=== PATIENT | male | born 1985 | race Caucasian/White ===

== ENCOUNTER 2017-05-13 08:54 | Emergency (ER) | payer BC ==
[2017-05-13 08:59] VITALS: TEMP 97.2
--- NOTE | 2017-05-13 09:06 | ED ---
General Adult HPI - General Chief complaint: Upper Respiratory Infection Stated complaint: Dx URI, STILL NOT FEELING WELL Time Seen by Provider: 05/13/17 09:01 Source: patient, RN notes reviewed Mode of arrival: ambulatory Limitations: no limitations - History of Present Illness Initial comments: Patient 32-year-old male who presents emergency room today with a chief complaint of cough congestion over the last week and a half. He does admit that he was placed on Augmentin by the family doctor. He does admit that he finished this antibiotic for days ago. He states does not feel that he's gotten any better. Still having cough congestion upon sputum production. States colors been clear in patient denies any other complaints associated symptoms. Patient denies any recent fever, chills, shortness of breath, chest pain, back pain, abdominal pain, nausea or vomiting, numbness or tingling, dysuria or hematuria, constipation or diarrhea, headaches or visual changes, or any other complaints. - Related Data Previous Rx's Medication Instructions Recorded guaiFENesin 400 mg PO Q4-6H #30 tablet 05/13/17 Allergies Allergy/AdvReac Type Severity Reaction Status Date / Time Iodinated Contrast- Oral and Allergy Anaphylaxis Verified 05/13/17 08:59 IV Dye shellfish derived [Shellfish] Allergy Anaphylaxis Verified 05/13/17 08:59 Review of Systems ROS Statement: Those systems with pertinent positive or pertinent negative responses have been documented in the HPI. ROS Other: All systems not noted in ROS Statement are negative. Past Medical History Past Medical History: No Reported History History of Any Multi-Drug Resistant Organisms: MRSA Date of last positivie culture/infection: 2010 MDRO Source:: leg Past Surgical History: Orthopedic Surgery Past Psychological History: No Psychological Hx Reported Smoking Status: Current every day smoker Past Alcohol Use History: Occasional Past Drug Use History: None Reported General Exam - General Exam Comments Initial Comments: General: The patient is awake and alert, in no distress, and does not appear acutely ill. Eye: Pupils are equal, round and reactive to light, extra-ocular movements are intact. No nystagmus. There is normal conjunctiva bilaterally. No signs of icterus. Ears, nose, mouth and throat: There are moist mucous membranes and no oral lesions. Neck: The neck is supple, there is no tenderness or JVD. Cardiovascular: There is a regular rate and rhythm. No murmur, rub or gallop is appreciated. Respiratory: Lungs are clear to auscultation, respirations are non-labored, breath sounds are equal. No wheezes, stridor, rales, or rhonchi. Musculoskeletal: Normal ROM, no tenderness. Strength 5/5. Sensation intact. Pulses equal bilaterally 2+. Neurological: A&O x 3. CN II-XII intact, There are no obvious motor or sensory deficits. Coordination appears grossly intact. Speech is normal. Skin: Skin is warm and dry and no rashes or lesions are noted. Psychiatric: Cooperative, appropriate mood & affect, normal judgment. Limitations: no limitations Course Vital Signs 05/13/17 08:56 Temperature 97.2 F L Pulse Rate 61 Respiratory 16 Rate Blood Pressure 133/91 O2 Sat by Pulse 98 Oximetry Medical Decision Making - Medical Decision Making Patient's x-ray reviewed negative for any acute abnormality. No sign of pneumonia. Results were discussed with the patient. Was advised that most likely a viral illness at this time. Advised patient to continue with ALLERGY medication. Will be given a prescription for guaifenesin. 8. To follow-up the family doctor symptoms are improving over the next 3-5 days. Advised return for any increase or worsening symptoms Disposition Clinical Impression: Upper respiratory infection Disposition: HOME SELF-CARE Condition: Good Instructions: Upper Respiratory Infection (ED) Additional Instructions: Please use medication as discussed. Please follow-up with family doctor in the next 3-5 days of symptoms have not improved. Please return to emergency room if the symptoms increase or worsen or for any other concerns. Prescriptions: guaiFENesin 400 mg PO Q4-6H #30 tablet Referrals: Samantha España MD [Primary Care Provider] - 1-2 days Time of Disposition: 09:34
--- NOTE | 2017-05-13 09:19 | XR ---
EXAMINATION TYPE: XR chest 2V DATE OF EXAM: 05/13/2017 COMPARISON: Chest x-ray March 21, 2013. HISTORY: Cough and congestion for one week. TECHNIQUE: Frontal and lateral views of the chest are obtained. FINDINGS: There is no focal air space opacity, pleural effusion, or pneumothorax seen. The cardiac silhouette size is within normal limits. The osseous structures are intact. IMPRESSION: No suspicious acute pulmonary process.
[2017-05-13 10:15] VITALS: BP 156/101; PULSE 65; RESP 17
== END 2017-05-13 10:20 | disposition home or self-care (01) ==
LOC: EC 08:54
DX: J06.9 Acute upper respiratory infection, unspecified (principal); F17.200 Nicotine dependence, unspecified, uncomplicated; Z91.041 Radiographic dye allergy status; Z91.013 Allergy to seafood
CPT/HCPCS: 71020; 99283

== ENCOUNTER 2019-11-02 09:09 | Emergency (ER) | payer BC, OTHER ==
[2019-11-02] MEDS ORDERED: NITROGLYCERIN SL TABS 0.4 MG TAB SUBLINGUAL STA (09:39)
[2019-11-02] MEDS ORDERED: ASPIRIN 81 MG PO STA (09:39)
[2019-11-02] MEDS ORDERED: SODIUM CHLORIDE 0.9% 1,000 ML IV STA (09:39)
--- NOTE | 2019-11-02 09:45 | ED ---
Chest Pain HPI - General Chief Complaint: Chest Pain Stated Complaint: Chest pain Time Seen by Provider: 11/02/19 09:20 Source: patient, RN notes reviewed Mode of arrival: ambulatory Limitations: no limitations - History of Present Illness Initial Comments: This is a 34-year-old male with a benign past medical history was a smoker and does work as a therapy manager who states she's been having intermittent episodes of chest pain he points to mid left sternal area since the beginning of this month. He states he been under a lot of stress since that time he had a new child born the and his dad is on hospice now for cancer since the of this month. He states he does get some relief from the pain when he burps it's 3- 12/19 severity he states is sharp and irritating he points to the midsternal area on the left he is not able reproduce it does not get worse or better with any type of movement deep breathing or positional change. He is not recall any heavy lifting no trauma he was noted have elevated blood pressure when he was evaluated up on the floor was father is currently. He states he normally has normal blood pressure. No other modifying factors he does state he was cutting down smoking many started smoking more because of the stress MD Complaint: chest pain - Related Data Home Medications Medication Instructions Recorded Confirmed Acetaminophen Tab [Tylenol Tab] 1,000 mg PO Q6HR PRN 08/15/17 08/15/17 Previous Rx's Medication Instructions Recorded Dicyclomine [Bentyl] 10 mg PO TID #10 capsule 08/15/17 Ondansetron Odt [Zofran ODT] 4 mg PO Q8HR PRN #20 tab 08/15/17 ALPRAZolam [Xanax] 0.5 mg PO BID PRN #10 tablet 11/02/19 Ibuprofen 800 mg PO Q6HR PRN #20 tablet 11/02/19 Allergies Allergy/AdvReac Type Severity Reaction Status Date / Time Iodinated Contrast Media Allergy Anaphylaxis Verified 08/15/17 13:14 [Iodinated Contrast- Oral and IV Dye] shellfish derived [Shellfish] Allergy Anaphylaxis Verified 08/15/17 13:14 Review of Systems ROS Statement: Those systems with pertinent positive or pertinent negative responses have been documented in the HPI. ROS Other: All systems not noted in ROS Statement are negative. EKG Findings - EKG Results: EKG: interpreted by LARS ELLER, sinus rhythm, normal axis, normal QRS, normal ST/T, no acute changes ([place] [address] QRS duration 110 QT since QTC 398/[address]-T wave changes) Past Medical History Past Medical History: Asthma History of Any Multi-Drug Resistant Organisms: MRSA Date of last positivie culture/infection: 2010 MDRO Source:: leg Past Surgical History: Orthopedic Surgery Past Psychological History: No Psychological Hx Reported Smoking Status: Current every day smoker Past Alcohol Use History: Occasional Past Drug Use History: Marijuana General Exam - General Exam Comments Initial Comments: This is a well-developed well-nourished awake alert oriented 3 male Limitations: no limitations General appearance: alert, in no apparent distress Head exam: Present: atraumatic, normocephalic, normal inspection Eye exam: Present: normal appearance, PERRL, EOMI. Absent: scleral icterus, conjunctival injection, periorbital swelling ENT exam: Present: normal exam, mucous membranes moist Neck exam: Present: normal inspection, full ROM, other (No stridor JVD or bruits). Absent: tenderness, meningismus, lymphadenopathy Respiratory exam: Present: normal lung sounds bilaterally. Absent: respiratory distress, wheezes, rales, rhonchi, stridor Cardiovascular Exam: Present: regular rate, normal rhythm, normal heart sounds. Absent: systolic murmur, diastolic murmur, rubs, gallop, clicks GI/Abdominal exam: Present: soft, normal bowel sounds. Absent: distended, tenderness, guarding, rebound, rigid Extremities exam: Present: normal inspection, full ROM, normal capillary refill. Absent: tenderness, pedal edema, joint swelling, calf tenderness Back exam: Present: normal inspection Neurological exam: Present: alert, oriented X3, CN II-XII intact Psychiatric exam: Present: normal affect, normal mood Skin exam: Present: warm, dry, intact, normal color. Absent: rash Course Vital Signs 11/02/19 11/02/19 11/02/19 09:12 10:15 11:22 Temperature 98.3 F Pulse Rate 78 66 51 L Respiratory 18 16 16 Rate Blood Pressure 166/127 148/108 145/92 O2 Sat by Pulse 98 97 99 Oximetry Chest Pain MDM - MDM I did reevaluate patient several occasions he states he is only feeling better less stressed out. He points to one spot at the lower anterior left costal chondral margin. We did a long discussion regarding the etiology is likely stress-induced costochondritic origin. He did caution the patient was smoking. He will be discharged he is encouraged to follow-up with his doctor for outpatient stress test. Disposition Clinical Impression: Chest wall syndrome, Anxiety, Costochondritis, Smoking Disposition: HOME SELF-CARE Condition: Good Instructions (If sedation given, give patient instructions): Costochondritis (ED), Anxiety (ED), Anxiolysis in Adults (ED), How to Stop Smoking (ED) Additional Instructions: Follow-up with her doctor as per discussion for outpatient stress test, stop smoking if possible Prescriptions: Ibuprofen 800 mg PO Q6HR PRN #20 tablet PRN Reason: Pain ALPRAZolam [Xanax] 0.5 mg PO BID PRN #10 tablet PRN Reason: Anxiety Is patient prescribed a controlled substance at d/c from ED?: No When asked, does pt state using other controlled substances?: No If opioid is for acute pain is fill amount 7 days or less?: Yes Referrals: Samantha España MD [Primary Care Provider] - 1-2 days
[2019-11-02 09:59] LABS: Basophils # (A) 0.1 k/uL (0-0.2); Basophils % (A) 1 %; Eosinophils # (A) 0.4 k/uL (0-0.7); Eosinophils % (A) 6 %; HCT 50.6 % (39.0-53.0); Lymphocytes # (A) 1.8 k/uL (1.0-4.8); Lymphocytes % (A) 25 %; MCH 31.2 pg (25.0-35.0); MCHC 33.6 g/dL (31.0-37.0); MCV 92.9 fL (80.0-100.0); Mean Platelet Volume 7.6; Monocytes # (A) 0.4 k/uL (0-1.0); Monocytes % (A) 6 %; Neutrophils # (A) 4.3 k/uL (1.3-7.7); Neutrophils % (A) 61 %; Platelet Count 284 k/uL (150-450); RBC 5.44 m/uL (4.30-5.90); RDW 12.3 % (11.5-15.5); WBC 7.1 k/uL (3.8-10.6)
[2019-11-02 10:07] LABS: ALT 26 U/L (4-49); AST 25 U/L (17-59); African American GFR (CKD) >90 (>60 ml/min/1.73 sqM); Albumin 4.8 g/dL (3.5-5.0); Alkaline Phosphatase 88 U/L (38-126); Anion Gap 9 mmol/L; Blood Urea Nitrogen 11 mg/dL (9-20); Calcium 9.8 mg/dL (8.4-10.2); Carbon Dioxide 24 mmol/L (22-30); Chloride 107 mmol/L (98-107); Creatine Kinase 82 U/L (55-170); Glucose 104 mg/dL (74-99); Magnesium 2.3 mg/dL (1.6-2.3); Non-African American GFR(CKD) >90 (>60 ml/min/1.73 sqM); Potassium 4.3 mmol/L (3.5-5.1); Sodium 140 mmol/L (137-145); Total Bilirubin 0.6 mg/dL (0.2-1.3)
[2019-11-02 10:18] LABS: D-Dimer <0.17 mg/L FEU (<0.60); INR 0.9 (<1.2); Partial Thromboplastin Time 23.8 sec (22.0-30.0); Prothrombin Time 9.7 sec (9.0-12.0)
--- NOTE | 2019-11-02 10:53 | XR ---
EXAMINATION TYPE: XR chest 2V DATE OF EXAM: 11/02/2019 HISTORY: Chest Pain. REFERENCE: Previous study dated 05/31/2017. FINDINGS: The lungs remain clear. Pleural space are clear. The heart is not enlarged. IMPRESSION: NO ACTIVE INTRATHORACIC DISEASE.
[2019-11-02] MEDS ORDERED: KETOROLAC 30 MG/ML 1 ML VIAL IVP STA (10:59)
[2019-11-02 12:11] VITALS: BP 150/94; PULSE 62; RESP 18; TEMP 98
== END 2019-11-02 12:11 | disposition home or self-care (01) ==
LOC: EC 09:09
DX: M94.0 Chondrocostal junction syndrome [Tietze] (principal); F41.9 Anxiety disorder, unspecified; Z63.79 Other stressful life events affecting family and household; F17.200 Nicotine dependence, unspecified, uncomplicated; Z91.013 Allergy to seafood; Z91.041 Radiographic dye allergy status; Z86.14 Personal history of Methicillin resistant Staphylococcus aureus infection
CPT/HCPCS: 36415; 93005; 85379; 83880; 80053; 82550; 83690; 83735; 84484; 85025; 85610; 85730; 71046; 99285; 96374; 96361 ×2; J1885

== ENCOUNTER 2019-11-21 19:02 | Observation (INO) | payer BC, OTHER ==
[2019-11-21 19:54] LABS: Basophils # (A) 0.1 k/uL (0-0.2); Basophils % (A) 1 %; Eosinophils # (A) 0.4 k/uL (0-0.7); Eosinophils % (A) 4 %; HCT 49.5 % (39.0-53.0); HGB 16.5 gm/dL (13.0-17.5); Lymphocytes # (A) 2.2 k/uL (1.0-4.8); Lymphocytes % (A) 25 %; MCH 30.8 pg (25.0-35.0); MCHC 33.4 g/dL (31.0-37.0); MCV 92.1 fL (80.0-100.0); Mean Platelet Volume 7.6; Monocytes # (A) 0.6 k/uL (0-1.0); Monocytes % (A) 7 %; Neutrophils # (A) 5.6 k/uL (1.3-7.7); Neutrophils % (A) 62 %; Platelet Count 272 k/uL (150-450); RBC 5.37 m/uL (4.30-5.90); RDW 12.2 % (11.5-15.5); WBC 8.9 k/uL (3.8-10.6)
[2019-11-21 20:00] LABS: Appearance,Urine Clear (Clear); Bilirubin,Urine Negative (Negative); Blood,Urine Negative (Negative); Color,Urine Colorless; Glucose,Urine (UA) Negative (Negative); Ketones,Urine Negative (Negative); Leukocyte Esterase,Urine Negative (Negative); Nitrite,Urine Negative (Negative); PH, Urine 5.5 (5.0-8.0); Protein,Urine Negative (Negative); Specific Gravity,Urine 1.001 (1.001-1.035); Urobilinogen,Urine <2.0 mg/dL (<2.0)
[2019-11-21 20:03] LABS: Partial Thromboplastin Time 23.7 sec (22.0-30.0)
[2019-11-21 20:09] LABS: ALT 36 U/L (4-49); AST 28 U/L (17-59); African American GFR (CKD) >90 (>60 ml/min/1.73 sqM); Albumin 4.7 g/dL (3.5-5.0); Alkaline Phosphatase 66 U/L (38-126); Anion Gap 13 mmol/L; Blood Urea Nitrogen 8 mg/dL (9-20); Calcium 9.3 mg/dL (8.4-10.2); Carbon Dioxide 21 mmol/L (22-30); Chloride 106 mmol/L (98-107); Glucose 102 mg/dL (74-99); Magnesium 2.4 mg/dL (1.6-2.3); Non-African American GFR(CKD) >90 (>60 ml/min/1.73 sqM); Potassium 4.2 mmol/L (3.5-5.1); Sodium 140 mmol/L (137-145); Total Bilirubin 0.5 mg/dL (0.2-1.3); Total Protein 7.7 g/dL (6.3-8.2)
--- NOTE | 2019-11-21 20:21 | XR ---
EXAMINATION: XR chest 2V DATE AND TIME: 11/21/2019 7:52 PM CLINICAL INDICATION: PHH; Chest Pain TECHNIQUE: Departmental protocol COMPARISON: 11/02/2019 FINDINGS: The lungs are clear. The pleural spaces are negative. The cardiac silhouette is not enlarged. The remainder of the mediastinal silhouette is unremarkable. The skeletal structures and soft tissues are negative for acute findings. IMPRESSION: NO ACUTE PROCESS.
--- NOTE | 2019-11-21 21:07 | ED ---
General Adult HPI - General Chief complaint: Chest Pain Stated complaint: Chest pain Time Seen by Provider: 11/21/19 19:22 Source: patient, EMS Mode of arrival: EMS Limitations: no limitations - History of Present Illness Initial comments: 34-year-old male patient past medical history significant for hypertension and chronic alcohol abuse presents to the emergency department today for evaluation of substernal chest pain. Patient states the pain is radiating through to his back. Patient states he was having painful breathing with this. Denies any cough or congestion. Denies nausea, vomiting, or sweats. Patient states he has been under a lot of stress lately. States his father is currently in hospice at this hospital. Patient states he did have a similar episode a few weeks ago. He was evaluated here and discharged home. States he is unable to follow up with cardiology. Patient states that pain started at rest. States it was like a tight squeezing pain to the center of his chest. Patient states whenever he goes to doctors blood pressure was elevated but he has never been started on medication. He does admit to drinking 3-4 beers per day. Denies any change to his pain with eating or drinking. Patient denies any recent rash, fever, chills, abdominal pain, diarrhea, constipation, back pain, numbness, tingling, dizziness, weakness, hematuria, dysuria, urinary urgency, urinary frequency, headache, visual changes, or any other complaints. - Related Data Home Medications Medication Instructions Recorded Confirmed Acetaminophen Tab [Tylenol Tab] 1,000 mg PO Q6HR PRN 08/15/17 08/15/17 Previous Rx's Medication Instructions Recorded Dicyclomine [Bentyl] 10 mg PO TID #10 capsule 08/15/17 Ondansetron Odt [Zofran ODT] 4 mg PO Q8HR PRN #20 tab 08/15/17 ALPRAZolam [Xanax] 0.5 mg PO BID PRN #10 tablet 11/02/19 Ibuprofen 800 mg PO Q6HR PRN #20 tablet 11/02/19 Allergies Allergy/AdvReac Type Severity Reaction Status Date / Time Iodinated Contrast Media Allergy Anaphylaxis Verified 11/21/19 19:18 [Iodinated Contrast- Oral and IV Dye] shellfish derived [Shellfish] Allergy Anaphylaxis Verified 11/21/19 19:18 Review of Systems ROS Statement: Those systems with pertinent positive or pertinent negative responses have been documented in the HPI. ROS Other: All systems not noted in ROS Statement are negative. Past Medical History Past Medical History: Asthma History of Any Multi-Drug Resistant Organisms: MRSA Date of last positivie culture/infection: 2010 MDRO Source:: leg Past Surgical History: Orthopedic Surgery Past Psychological History: No Psychological Hx Reported Smoking Status: Current every day smoker Past Alcohol Use History: Occasional Past Drug Use History: Marijuana General Exam Limitations: no limitations General appearance: alert, in no apparent distress, other (Physical well- developed, well-nourished adult male patient in no acute distress.) Eye exam: Present: normal appearance, PERRL, EOMI. Absent: scleral icterus, conjunctival injection, periorbital swelling ENT exam: Present: normal exam, normal oropharynx, mucous membranes moist Respiratory exam: Present: normal lung sounds bilaterally. Absent: respiratory distress, wheezes, rales, rhonchi, stridor Cardiovascular Exam: Present: regular rate, normal rhythm, normal heart sounds. Absent: systolic murmur, diastolic murmur, rubs, gallop, clicks GI/Abdominal exam: Present: soft, normal bowel sounds. Absent: distended, tenderness, guarding, rebound, rigid Neurological exam: Present: alert, oriented X3, CN II-XII intact Psychiatric exam: Present: normal affect, normal mood Skin exam: Present: warm, dry, intact, normal color. Absent: rash Course Vital Signs 11/21/19 11/21/19 11/21/19 19:11 19:15 19:30 Temperature 98.1 F Pulse Rate 77 76 Respiratory 20 16 Rate Blood Pressure 130/73 130/73 O2 Sat by Pulse 95 97 Oximetry 11/21/19 11/21/19 11/21/19 19:38 20:00 20:05 Temperature Pulse Rate 72 63 69 Respiratory 20 14 16 Rate Blood Pressure 117/62 117/62 119/93 O2 Sat by Pulse 97 99 97 Oximetry 11/21/19 20:30 Temperature Pulse Rate 72 Respiratory 16 Rate Blood Pressure 119/53 O2 Sat by Pulse 97 Oximetry EKG Findings - EKG Comments: EKG Findings:: EKG obtained at 1925 shows normal sinus rhythm with a ventricular rate is 77, NH interval 176, QRS duration 96, QT 370, QTC 418. Medical Decision Making - Medical Decision Making 34 year old male patient presents to the emergency department today for evaluation of chest pain painful breathing. Labs reviewed and are unremarkable. Chest x-ray shows no acute cardio pulmonary process. EKG shows no ST elevation or depression. This is the patient's second similar episode in the last few weeks. Patient potentially has untreated hypertension, does drink beer on a daily basis, and has family history of coronary artery disease. Patient will be admitted to the hospital for further evaluation by cardiology. Patient is agreeable this plan. - Lab Data Result diagrams: 11/21/19 19:32 11/21/19 19:32 Lab Results 11/21/19 11/21/19 11/21/19 Range/Units 19:32 19:32 19:32 WBC 8.9 (3.8-10.6) k/uL RBC 5.37 (4.30-5.90) m/uL Hgb 16.5 (13.0-17.5) gm/dL Hct 49.5 (39.0-53.0) % MCV 92.1 (80.0-100.0) fL MCH 30.8 (25.0-35.0) pg MCHC 33.4 (31.0-37.0) g/dL RDW 12.2 (11.5-15.5) % Plt Count 272 (150-450) k/uL Neutrophils % 62 % Lymphocytes % 25 % Monocytes % 7 % Eosinophils % 4 % Basophils % 1 % Neutrophils # 5.6 (1.3-7.7) k/uL Lymphocytes # 2.2 (1.0-4.8) k/uL Monocytes # 0.6 (0-1.0) k/uL Eosinophils # 0.4 (0-0.7) k/uL Basophils # 0.1 (0-0.2) k/uL PT 10.0 (9.0-12.0) sec INR 1.0 (<1.2) APTT 23.7 (22.0-30.0) sec Sodium (137-145) mmol/L Potassium (3.5-5.1) mmol/L Chloride (98-107) mmol/L Carbon Dioxide (22-30) mmol/L Anion Gap mmol/L BUN (9-20) mg/dL Creatinine (0.66-1.25) mg/dL Est GFR (CKD-EPI)AfAm (>60 ml/min/1.73 sqM) Est GFR (CKD-EPI)NonAf (>60 ml/min/1.73 sqM) Glucose (74-99) mg/dL Calcium (8.4-10.2) mg/dL Magnesium (1.6-2.3) mg/dL Total Bilirubin (0.2-1.3) mg/dL AST (17-59) U/L ALT (4-49) U/L Alkaline Phosphatase (38-126) U/L Troponin I (0.000-0.034) ng/mL Total Protein (6.3-8.2) g/dL Albumin (3.5-5.0) g/dL Urine Color Colorless Urine Appearance Clear (Clear) Urine pH 5.5 (5.0-8.0) Ur Specific Collins 1.001 (1.001-1.035) Urine Protein Negative (Negative) Urine Glucose (UA) Negative (Negative) Urine Ketones Negative (Negative) Urine Blood Negative (Negative) Urine Nitrite Negative (Negative) Urine Bilirubin Negative (Negative) Urine Urobilinogen <2.0 (<2.0) mg/dL Ur Leukocyte Esterase Negative (Negative) 11/21/19 11/21/19 Range/Units 19:32 19:32 WBC (3.8-10.6) k/uL RBC (4.30-5.90) m/uL Hgb (13.0-17.5) gm/dL Hct (39.0-53.0) % MCV (80.0-100.0) fL MCH (25.0-35.0) pg MCHC (31.0-37.0) g/dL RDW (11.5-15.5) % Plt Count (150-450) k/uL Neutrophils % % Lymphocytes % % Monocytes % % Eosinophils % % Basophils % % Neutrophils # (1.3-7.7) k/uL Lymphocytes # (1.0-4.8) k/uL Monocytes # (0-1.0) k/uL Eosinophils # (0-0.7) k/uL Basophils # (0-0.2) k/uL PT (9.0-12.0) sec INR (<1.2) APTT (22.0-30.0) sec Sodium 140 (137-145) mmol/L Potassium 4.2 (3.5-5.1) mmol/L Chloride 106 (98-107) mmol/L Carbon Dioxide 21 L (22-30) mmol/L Anion Gap 13 mmol/L BUN 8 L (9-20) mg/dL Creatinine 0.87 (0.66-1.25) mg/dL Est GFR (CKD-EPI)AfAm >90 (>60 ml/min/1.73 sqM) Est GFR (CKD-EPI)NonAf >90 (>60 ml/min/1.73 sqM) Glucose 102 H (74-99) mg/dL Calcium 9.3 (8.4-10.2) mg/dL Magnesium 2.4 H (1.6-2.3) mg/dL Total Bilirubin 0.5 (0.2-1.3) mg/dL AST 28 (17-59) U/L ALT 36 (4-49) U/L Alkaline Phosphatase 66 (38-126) U/L Troponin I <0.012 (0.000-0.034) ng/mL Total Protein 7.7 (6.3-8.2) g/dL Albumin 4.7 (3.5-5.0) g/dL Urine Color Urine Appearance (Clear) Urine pH (5.0-8.0) Ur Specific Collins (1.001-1.035) Urine Protein (Negative) Urine Glucose (UA) (Negative) Urine Ketones (Negative) Urine Blood (Negative) Urine Nitrite (Negative) Urine Bilirubin (Negative) Urine Urobilinogen (<2.0) mg/dL Ur Leukocyte Esterase (Negative) - Radiology Data Radiology results: report reviewed, image reviewed Two-view x-ray of the chest is obtained. Report reviewed in its entirety. Impression by Dr. Niurka Johnston shows no acute process. Disposition Clinical Impression: Chest pain Disposition: ADMITTED IP TO THIS HOSP Condition: Serious Referrals: Samantha España MD [Primary Care Provider] - 1-2 days Decision to Admit Reason: Admit from [facility] Decision Date: 11/21/19 Decision Time: 21:07
[2019-11-21] MEDS ORDERED: ONDANSETRON 4 MG/2 ML VIAL IVP PRN (21:11)
[2019-11-21] MEDS ORDERED: NALOXONE 0.4 MG/ML 1 ML VIAL IV PRN (21:11)
[2019-11-21] MEDS ORDERED: MORPHINE SULFATE 4 MG/ML SYRINGE IV PRN (21:11)
[2019-11-22] MEDS ORDERED: ALPRAZolam 0.5 MG TAB PO PRN (08:28)
[2019-11-22] MEDS ORDERED: ACETAMINOPHEN TAB 500 MG TAB PO PRN (08:28)
[2019-11-22] MEDS ORDERED: ASPIRIN 325 MG TAB PO SCH (09:00)
[2019-11-22 09:24] LABS: Basophils # (A) 0.1 k/uL (0-0.2); Basophils % (A) 1 %; Eosinophils # (A) 0.6 k/uL (0-0.7); Eosinophils % (A) 7 %; HCT 49.5 % (39.0-53.0); Lymphocytes # (A) 2.4 k/uL (1.0-4.8); Lymphocytes % (A) 28 %; MCH 30.1 pg (25.0-35.0); MCHC 32.4 g/dL (31.0-37.0); MCV 93.1 fL (80.0-100.0); Mean Platelet Volume 7.5; Monocytes # (A) 0.6 k/uL (0-1.0); Monocytes % (A) 6 %; Neutrophils # (A) 4.9 k/uL (1.3-7.7); Neutrophils % (A) 57 %; Platelet Count 262 k/uL (150-450); RBC 5.32 m/uL (4.30-5.90); RDW 12.4 % (11.5-15.5); WBC 8.5 k/uL (3.8-10.6)
[2019-11-22 09:43] LABS: ALT 34 U/L (4-49); AST 27 U/L (17-59); African American GFR (CKD) >90 (>60 ml/min/1.73 sqM); Albumin 4.3 g/dL (3.5-5.0); Alkaline Phosphatase 72 U/L (38-126); Anion Gap 7 mmol/L; Blood Urea Nitrogen 10 mg/dL (9-20); Calcium 9.3 mg/dL (8.4-10.2); Carbon Dioxide 24 mmol/L (22-30); Chloride 108 mmol/L (98-107); Glucose 84 mg/dL (74-99); Non-African American GFR(CKD) >90 (>60 ml/min/1.73 sqM); Potassium 4.5 mmol/L (3.5-5.1); Sodium 139 mmol/L (137-145); Total Bilirubin 0.8 mg/dL (0.2-1.3); Total Protein 7.3 g/dL (6.3-8.2)
--- NOTE | 2019-11-22 10:50 | P.HPIM ---
History of Present Illness H&P Date: 11/22/19 Chief Complaint: chest pain This is a 34-year-old male patient who presented to the ER with complaints of chest pain. Patient reports that came on suddenly when he was at rest and was described as sharp that radiated to his back. Patient does report he's been under a lot of stress lately with an ill father. Patient states he had similar episode a few weeks ago when she presented to the ER but was discharged and advised follow up with cardiology services. Patient reports he has been unable to follow up with cardiology services. Chest x-ray was completed in ER showing no acute process. EKG completed showing normal sinus rhythm low voltage QRS. D-dimer 0.21. Troponins negative. At that time cardiology services have been consulted. 2-D echo has been ordered. Patient denies any chest pain or shortness of breath. Patient denies nausea vomiting or diarrhea. Patient denies any urinary burning or frequency. Review of Systems Please refer to HPI otherwise unremarkable Past Medical History Past Medical History: Asthma History of Any Multi-Drug Resistant Organisms: MRSA Date of last positivie culture/infection: 2010 MDRO Source:: leg Past Surgical History: Orthopedic Surgery Additional Past Surgical History / Comment(s): 2 knee surgeries 2001. Past Psychological History: No Psychological Hx Reported Smoking Status: Current every day smoker Past Alcohol Use History: Occasional Past Drug Use History: Marijuana Medications and Allergies Home Medications Medication Instructions Recorded Confirmed Type ALPRAZolam [Xanax] 0.5 mg PO BID PRN #10 tablet 11/02/19 11/22/19 Rx Aspirin EC [Ecotrin Low Dose] 81 mg PO DAILY 11/22/19 11/22/19 History Allergies Allergy/AdvReac Type Severity Reaction Status Date / Time Iodinated Contrast Media Allergy Anaphylaxis Verified 11/22/19 08:43 [Iodinated Contrast- Oral and IV Dye] shellfish derived [Shellfish] Allergy Anaphylaxis Verified 11/22/19 08:43 Physical Exam Vitals: Vital Signs Temp Pulse Pulse Resp BP BP Pulse Ox 11/22/19 07:26 98 F 49 L 15 136/87 11/22/19 03:43 97.7 F 57 L 16 135/80 99 11/21/19 23:00 97.4 F L 73 18 121/66 94 L 11/21/19 20:30 72 16 119/53 97 11/21/19 20:05 69 16 119/93 97 11/21/19 20:00 63 14 117/62 99 11/21/19 19:38 72 20 117/62 97 11/21/19 19:30 76 16 130/73 11/21/19 19:15 98.1 F 77 20 130/73 97 11/21/19 19:11 95 Intake and Output 11/21/19 11/22/19 11/22/19 22:59 06:59 14:59 Other: # Voids 1 Weight 111.13 kg Head normocephalic Neck supple Lungs clear to auscultation bilaterally no wheezing or crackles Heart regular rate and rhythm S1-S2, no rub or gallop Abdomen is soft nontender nondistended positive bowel sounds no hepatosplenomegaly Extremities no edema Neuro alert and orientated to 3 Results CBC & Chem 7: 11/22/19 08:57 11/22/19 08:57 Labs: Abnormal Lab Results - Last 24 Hours (Table) 11/21/19 11/22/19 Range/Units 19:32 08:57 Chloride 108 H (98-107) mmol/L Carbon Dioxide 21 L (22-30) mmol/L BUN 8 L (9-20) mg/dL Glucose 102 H (74-99) mg/dL Magnesium 2.4 H (1.6-2.3) mg/dL Thrombosis Risk Factor Assmnt - Choose All That Apply Any of the Below Risk Factors Present?: Yes Each Factor Represents 1 point: Obesity (BMI >25) Other Risk Factors: No Thrombosis Risk Factor Assessment Total Risk Factor Score: 1 Thrombosis Risk Factor Assessment Level: Low Risk Assessment and Plan Assessment: 1. Chest pain. Troponins negative 3. D-dimer 0.21. Chest x-ray completed showing no acute process. EKG completed showing normal sinus rhythm low voltage QRS. Cardiology services have been consulted. 2-D echo has been ordered 2. History of EtOH. Patient states he drinks 3-4 beers a night 3. Nicotine dependence. Patient declined nicotine patch at this time. Patient educated greater than 3 minutes on smoking cessation 4. Essential hypertension. Patient not currently on any medication 5. History of asthma no exacerbation at this time 6. History of MRSA to leg in 2010 Time with Patient: Greater than 30 (Greater than 60% of the total time spent in counseling and coordination of care. I performed an examination of the patient and discussed their management with the Nurse Practitioner. I have reviewed the Nurse Practitioner's notes and agree with the documented findings and plan of care)
[2019-11-22 15:38] VITALS: BP 150/100; PULSE 62; RESP 18; TEMP 97.9
--- NOTE | 2019-11-22 15:46 | ECHOF ---
Referral Reason:cp MEASUREMENTS -------- HEIGHT: 185.4 cm WEIGHT: 111.1 kg BP: 136/87 IVSd: 1.1 cm (0.6 - 1.1) LVIDd: 5.0 cm (3.9 - 5.3) LVPWd: 0.9 cm (0.6 - 1.1) EDV(Teich): 120 ml IVSs: 1.7 cm LVIDs: 2.8 cm LVPWs: 1.5 cm %IVS Thck: 57 % ESV(Teich): 30 ml EF(Teich): 75 % %FS: 44 % SV(Teich): 90 ml LA Diam: 3.3 cm (2.7 - 3.8) RVIDd: 3.6 cm (< 3.3) LALs A4C: 5.0 cm LAAs A4C: 15.8 cm LAESV A-L A4C: 43 ml LAESV MOD A4C: 40 ml LALs A2C: 5.4 cm LAAs A2C: 20.0 cm LAESV A-L A2C: 64 ml LAESV MOD A2C: 60 ml LAESV(A-L): 54 ml Ao Diam: 3.1 cm (2.0 - 3.7) AV Cusp: 2.2 cm (1.5 - 2.6) EPSS: 0.2 cm MV E [place]: 0.80 m/s MV DecT: 184 ms MV Dec [place]: 4.3 m/s MV A [place]q: 0.81 m/s MV E/A Ratio: 0.98 MV PHT: 53 ms TR Vmax: 1.95 m/s TR maxP.18 mmHg RAP: 5.00 mmHg RVSP: 20.18 mmHg MV EF SLOPE: 127.47 mm/s (70 - 150) MV EXCURSION: 16.31 mm (> 18.000) FINDINGS -------- Sinus rhythm. This was a technically good study. The left ventricular size is normal. Left ventricular wall thickness is normal. Overall left vent ricular systolic function is normal with, an EF between 55 - 60 %. The right ventricle is mildly enlarged. The left atrial size is normal. The right atrial size is normal. Interatrial and interventricular septum intact. The aortic valve is trileaflet, and appears structurally normal. No aortic stenosis or regurgitation. The mitral valve is normal. Mild tricuspid regurgitation present. Right ventricular systolic pressure is normal at < 35 mmHg. There is no pulmonic regurgitation present. The aortic root size is normal. Normal inferior vena cava with normal inspiratory collapse consistent with estimated right atrial pre ssure of 5 mmHg. There is no pericardial effusion. CONCLUSIONS -------- 1. Sinus rhythm. 2. This was a technically good study. 3. The left ventricular size is normal. 4. Left ventricular wall thickness is normal. 5. Overall left ventricular systolic function is normal with, an EF between 55 - 60 %. 6. The right ventricle is mildly enlarged. 7. The left atrial size is normal. 8. The aortic valve is trileaflet, and appears structurally normal. No aortic stenosis or regurgitati on. 9. The mitral valve is normal. 10. Mild tricuspid regurgitation present. 11. Right ventricular systolic pressure is normal at < 35 mmHg. 12. There is no pulmonic regurgitation present. 13. Normal inferior vena cava with normal inspiratory collapse consistent with estimated right atrial pressure of 5 mmHg. 14. There is no pericardial effusion. ZIPPER MEASURER: Rita Burkett RDCS
--- NOTE | 2019-11-22 15:50 | P.DS ---
Providers Date of admission: 11/21/19 21:17 Expected date of discharge: 11/22/19 Attending physician: Anya Kilgore Consults: 11/21/19 21:12 Consult Physician Routine Consulting Provider: [facility] Consult Reason/Comments: Chest Pain Do you want consulting provider notified?: Yes Primary care physician: Samantha España Hospital Course: Discharge diagnosis 1. Chest pain. Troponins negative 3. D-dimer 0.21. Chest x-ray completed showing no acute process. EKG completed showing normal sinus rhythm low voltage QRS. Cardiology services have been consulted. 2-D echo has been ordered and reviewed per Dr. Joaquin. Dr. kilgore discussed case with Dr. Joaquin patient may be discharged home with outpatient stress test 2. History of EtOH. Patient states he drinks 3-4 beers a night 3. Nicotine dependence. Patient declined nicotine patch at this time. Patient educated greater than 3 minutes on smoking cessation 4. Essential hypertension. Patient not currently on any medication 5. History of asthma no exacerbation at this time 6. History of MRSA to leg in 2010 Hospital course This is a 34-year-old male patient who presented to the ER with complaints of chest pain. Patient reports that came on suddenly when he was at rest and was described as sharp that radiated to his back. Patient does report he's been under a lot of stress lately with an ill father. Patient states he had similar episode a few weeks ago when she presented to the ER but was discharged and advised follow up with cardiology services. Patient reports he has been unable to follow up with cardiology services. Chest x-ray was completed in ER showing no acute process. EKG completed showing normal sinus rhythm low voltage QRS. D-dimer 0.21. Troponins negative. At that time cardiology services have been consulted. 2-D echo has been ordered. Patient denies any chest pain or shortness of breath. Patient denies nausea vomiting or diarrhea. Patient denies any urinary burning or frequency. On 11/22/2019 patient is alert and oriented 3. Troponins negative 3. 2-D echo was completed and reviewed per cardiology. Per cardiology patient may be discharged home and follow-up outpatient for outpatient stress. 2-D echo completed showing an EF of 55-60%. At this time patient denies any chest pain. Patient denies nausea vomiting or diarrhea. Patient denies any urinary burning or frequency. Vital signs remained stable I performed an examination of the patient and discussed their management with irina zamora Nurse Practitioner. I have reviewed the Nurse Practitioner's notes and agree with the documented findings and plan of care Patient Condition at Discharge: Stable Plan - Discharge Summary Discharge Rx Participant: No New Discharge Prescriptions: Continue ALPRAZolam [Xanax] 0.5 mg PO BID PRN #10 tablet PRN Reason: Anxiety Aspirin EC [Ecotrin Low Dose] 81 mg PO DAILY Discharge Medication List ALPRAZolam [Xanax] 0.5 mg PO BID PRN #10 tablet 11/02/19 [Rx] Aspirin EC [Ecotrin Low Dose] 81 mg PO DAILY 11/22/19 [History] Follow up Appointment(s)/Referral(s): Samantha España MD [Primary Care Provider] - 1-2 days Radha Joaquin MD [STAFF PHYSICIAN] - 1 Week Activity/Diet/Wound Care/Special Instructions: Outpatient stress test with cardiology services Diet heart healthy Activity as tolerated Discharge Disposition: HOME SELF-CARE
--- NOTE | 2019-11-22 16:27 | CONS ---
CONSULTATION Mr. Cohen is a 34-year-old male with no prior documented history of cardiac disease. He has a history of daily alcohol intake. He presented to the emergency room with symptoms of chest discomfort. The discomfort occurred at rest and persisted. At the time of my evaluation, he is pain-free. The patient is reasonably active physically and has no exertional chest pain. He denies any prior history of cardiac disease. He denies any dizziness or palpitation. No PND, orthopnea or peripheral edema. His coronary risk factors are remarkable for smoking. His blood pressure has been elevated at times, but he is on no medication for that. REVIEW OF SYSTEMS: RESPIRATORY SYSTEM: He has a prior history of asthma as a child but not recently. He has no cough or wheezing. GI SYSTEM: No recent GI bleeding. No peptic ulcer disease. SYSTEM: No dysuria or hematuria. NERVOUS SYSTEM: No stroke or seizure. MEDICATIONS: Medications include aspirin and Xanax. PHYSICAL EXAMINATION: This is a 34-year-old male, alert, oriented, in no apparent distress. Blood pressure 143/90 with a heart rate in the 50s. HEAD: Normocephalic. Eyes: Sclerae anicteric. NECK: Good carotid upstroke. No bruit. No jugular venous distention. LUNGS: Clear to auscultation. HEART: Regular rate and rhythm. S1, S2. No S3. No S4. No murmur or rub. ABDOMEN: Soft, nontender. Positive bowel sounds. No organomegaly. EXTREMITIES: No edema. Intact distal pulses. LABORATORY STUDIES: EKG revealed sinus mechanism, normal axis and intervals, with nonspecific ST-T wave changes. Echocardiogram revealed normal wall thickening and motion with no segmental wall motion abnormality. Troponin less than 0.012 for 3 samples. Hemoglobin of 12.4, BUN and creatinine of 10 and 0.84. IMPRESSION: 1. Chest discomfort which has atypical features for ischemic coronary artery disease; probably non-cardiac. Could be related to the alcohol intake and GI source. 2. Hypertension, not treated in the past. 3. Daily alcohol intake. RECOMMENDATIONS: I have discussed the findings with the patient. I have explained to him the findings. I have encouraged him to stop his alcohol and smoking. His blood pressure will need to be followed as an outpatient. I would recommend proceeding with a regular stress test that can be done as an outpatient. Thank you for this consult. Will follow with you. MMODL / IJN: [id number] /
== END 2019-11-22 16:23 | disposition home or self-care (01) ==
LOC: EC 19:02 → 3SCARD 21:17
PROVIDERS: ADMIT Internal Medicine; ATTEND Internal Medicine
DX: R07.89 Other chest pain (principal); F10.10 Alcohol abuse, uncomplicated; F17.200 Nicotine dependence, unspecified, uncomplicated; I10 Essential (primary) hypertension; J45.909 Unspecified asthma, uncomplicated; Z86.14 Personal history of Methicillin resistant Staphylococcus aureus infection; Z91.041 Radiographic dye allergy status; Z91.013 Allergy to seafood; Z79.82 Long term (current) use of aspirin; Z79.899 Other long term (current) drug therapy; Z79.1 Long term (current) use of non-steroidal anti-inflammatories (NSAID)
CPT/HCPCS: 99285; 36415; 93005; 93306; 85379; 80053 ×2; 83735; 84484 ×2; 85025 ×2; 85610; 85730; 81003; 71046; G0378 ×2

== ENCOUNTER 2020-09-03 21:28 | Emergency (ER) | payer OTHER ==
[2020-09-03 21:38] VITALS: BP 116/82; PULSE 67; RESP 19; TEMP 98.2
--- NOTE | 2020-09-03 21:49 | ED ---
General Adult HPI - General Chief complaint: Skin/Abscess/Foreign Body Stated complaint: Poison oak Time Seen by Provider: 09/03/20 21:42 Source: patient Mode of arrival: ambulatory Limitations: no limitations - History of Present Illness Initial comments: Patient presents stating that he was working outside and was exposed to poison oak 2-3 days ago. Patient states that he has had a rash and pruritus to his forehead, the back of his neck and his bilateral wrists since then. Patient states that he has been exposed to poison oak in the past, and he states that he has had similar symptoms in the past with his exposures. Patient denies new medication use, tongue/lip/throat swelling, dysphagia, dyspnea, dizziness, fever, chest pain, abdominal pain, nausea/vomiting/diarrhea, or any other symptoms or complaints. Patient states that he has been taking Benadryl without much relief. Patient states that in the past he was given Medrol Dosepaks with his poison oak exposure with improvement. - Related Data Home Medications Medication Instructions Recorded Confirmed Aspirin EC [Ecotrin Low Dose] 81 mg PO DAILY 11/22/19 11/22/19 Previous Rx's Medication Instructions Recorded ALPRAZolam [Xanax] 0.5 mg PO BID PRN #10 tablet 11/02/19 Hydrocortisone Cream 1 applic TOPICAL TID #20 gm 09/03/20 [Hydrocortisone 2.5% Cream] methylPREDNISolone Dose Pack 4 mg PO DIRECTED #21 package 09/03/20 [Medrol Dose Pack] Allergies Allergy/AdvReac Type Severity Reaction Status Date / Time Iodinated Contrast Media Allergy Anaphylaxis Verified 09/03/20 21:38 [Iodinated Contrast- Oral and IV Dye] shellfish derived [Shellfish] Allergy Anaphylaxis Verified 09/03/20 21:38 Review of Systems ROS Statement: Those systems with pertinent positive or pertinent negative responses have been documented in the HPI. ROS Other: All systems not noted in ROS Statement are negative. Past Medical History Past Medical History: Asthma, Hypertension History of Any Multi-Drug Resistant Organisms: MRSA Date of last positivie culture/infection: 2010 MDRO Source:: leg Past Surgical History: Orthopedic Surgery Additional Past Surgical History / Comment(s): 2 knee surgeries 2001. Past Psychological History: No Psychological Hx Reported Smoking Status: Never smoker Past Alcohol Use History: Occasional Past Drug Use History: Marijuana General Exam General appearance: alert, in no apparent distress Head exam: Present: atraumatic, normocephalic Eye exam: Present: normal appearance, EOMI ENT exam: Present: mucous membranes moist, other (No evidence of oral or pharyngeal swelling or angioedema) Neck exam: Present: other (Trachea is in midline) Respiratory exam: Present: normal lung sounds bilaterally. Absent: respiratory distress, wheezes, rales, rhonchi, stridor Cardiovascular Exam: Present: regular rate, normal rhythm, normal heart sounds, other (Normal radial pulses bilaterally) GI/Abdominal exam: Present: soft. Absent: distended, tenderness, guarding Neurological exam: Present: alert, oriented X3. Absent: motor sensory deficit Psychiatric exam: Present: normal affect, normal mood Skin exam: Present: warm, dry, normal color, other (An excoriated, papular rash (consistent with contact dermatitis) is noted to the patient's posterior neck, forehead, ventral wrists and dorsal wrists) Course Vital Signs 09/03/20 21:35 Temperature 98.2 F Pulse Rate 67 Respiratory 19 Rate Blood Pressure 116/82 O2 Sat by Pulse 98 Oximetry Medical Decision Making - Medical Decision Making Patient's history and physical examination point to contact dermatitis as the etiology of the patient's rash. Patient was provided with prescriptions for a Medrol Dosepak and topical hydrocortisone cream. Patient was counseled about contact dermatitis, and he was clearly explained return and follow-up instructions. He was instructed to follow up closely with his primary care provider. He feels comfortable with this plan. Disposition Clinical Impression: Contact dermatitis Disposition: HOME SELF-CARE Condition: Stable Instructions (If sedation given, give patient instructions): Contact Dermatitis (ED) Additional Instructions: Return to the ER immediately should you develop tongue/lip/throat swelling, trouble breathing or swallowing, a fever, feeling dizzy or faint, or new or worsening symptoms. Follow up closely with your primary care provider. Prescriptions: Hydrocortisone Cream [Hydrocortisone 2.5% Cream] 1 applic TOPICAL TID #20 gm methylPREDNISolone Dose Pack [Medrol Dose Pack] 4 mg PO DIRECTED #21 package Is patient prescribed a controlled substance at d/c from ED?: No Referrals: Samantha España MD [Primary Care Provider] - 1-2 days Time of Disposition: 22:01
[2020-09-03] MEDS ORDERED: predniSONE 20 MG TAB PO STA (22:14)
== END 2020-09-03 22:18 | disposition home or self-care (01) ==
LOC: EC 21:28
DX: L23.7 Allergic contact dermatitis due to plants, except food (principal); Z91.041 Radiographic dye allergy status; Z91.013 Allergy to seafood; Z86.14 Personal history of Methicillin resistant Staphylococcus aureus infection
CPT/HCPCS: 99282; J7512

== ENCOUNTER 2020-12-13 16:36 | Emergency (ER) | payer OTHER ==
[2020-12-13 16:43] VITALS: BP 137/86; PULSE 71; RESP 18; TEMP 98.2
--- NOTE | 2020-12-13 17:51 | ED ---
ENT HPI - General Chief complaint: ENT Stated complaint: Sore Throat Time Seen by Provider: 12/13/20 17:05 Source: patient, RN notes reviewed Mode of arrival: ambulatory Limitations: no limitations - History of Present Illness Initial comments: 35-year-old male presents emergency Department chief complaint of sore throat, not feeling well. Patient states started last sent today. Patient states he noticed some white area by his throat. Patient denies any difficulty swallowing no headache or dizziness no cough currently. - Related Data Home Medications Medication Instructions Recorded Confirmed Aspirin EC [Ecotrin Low Dose] 81 mg PO DAILY 11/22/19 11/22/19 Previous Rx's Medication Instructions Recorded ALPRAZolam [Xanax] 0.5 mg PO BID PRN #10 tablet 11/02/19 Hydrocortisone Cream 1 applic TOPICAL TID #20 gm 09/03/20 [Hydrocortisone 2.5% Cream] methylPREDNISolone Dose Pack 4 mg PO DIRECTED #21 package 09/03/20 [Medrol Dose Pack] Amoxicillin/Potassium Clav 1 tab PO Q12HR #20 tab 12/13/20 [Augmentin 875-125 Tablet] Allergies Allergy/AdvReac Type Severity Reaction Status Date / Time Iodinated Contrast Media Allergy Anaphylaxis Verified 12/13/20 16:43 [Iodinated Contrast- Oral and IV Dye] shellfish derived [Shellfish] Allergy Anaphylaxis Verified 12/13/20 16:43 Review of Systems ROS Statement: Those systems with pertinent positive or pertinent negative responses have been documented in the HPI. ROS Other: All systems not noted in ROS Statement are negative. Past Medical History Past Medical History: Asthma, Hypertension History of Any Multi-Drug Resistant Organisms: MRSA Date of last positivie culture/infection: 2010 MDRO Source:: leg Past Surgical History: Orthopedic Surgery Additional Past Surgical History / Comment(s): 2 knee surgeries 2001. Past Psychological History: No Psychological Hx Reported Smoking Status: Current every day smoker Past Alcohol Use History: None Reported Past Drug Use History: Marijuana General Exam Limitations: no limitations General appearance: alert, in no apparent distress Head exam: Present: atraumatic, normocephalic, normal inspection Eye exam: Present: normal appearance, PERRL, EOMI. Absent: scleral icterus, conjunctival injection, periorbital swelling ENT exam: Present: mucous membranes moist, TM's normal bilaterally. Absent: normal oropharynx (Mild erythema and exudates noted) Neck exam: Present: normal inspection, full ROM. Absent: tenderness, meningismus, lymphadenopathy Respiratory exam: Present: normal lung sounds bilaterally. Absent: respiratory distress, wheezes, rales, rhonchi, stridor Cardiovascular Exam: Present: regular rate, normal rhythm, normal heart sounds. Absent: systolic murmur, diastolic murmur, rubs, gallop, clicks Neurological exam: Present: alert, oriented X3 Skin exam: Present: warm, dry, intact, normal color. Absent: rash Course Vital Signs 12/13/20 16:40 Temperature 98.2 F Pulse Rate 71 Respiratory 18 Rate Blood Pressure 137/86 O2 Sat by Pulse 97 Oximetry Medical Decision Making - Medical Decision Making Covid is negative strep is negative patient treated for acute pharyngitis ton sillitis. Patient discharged stable condition return parameters discussed. - Lab Data Lab Results 12/13/20 12/13/20 Range/Units 17:16 17:16 Coronavirus (PCR) Not Detected (Not Detectd) Group A Strep Rapid Negative (Negative) Disposition Clinical Impression: Pharyngitis Disposition: HOME SELF-CARE Condition: Stable Instructions (If sedation given, give patient instructions): Pharyngitis (ED) Additional Instructions: Please return to the Emergency Department if symptoms worsen or any other concerns. Prescriptions: Amoxicillin/Potassium Clav [Augmentin 875-125 Tablet] 1 tab PO Q12HR #20 tab Is patient prescribed a controlled substance at d/c from ED?: No Referrals: Samantha España MD [Primary Care Provider] - 1-2 days Time of Disposition: 18:16
[2020-12-13] MEDS ORDERED: AMOXIC-POT CLAV 875MG STARTER PACK 2 TAB BTL PO STA (18:14)
== END 2020-12-13 18:29 | disposition home or self-care (01) ==
LOC: EC 16:36
DX: J02.9 Acute pharyngitis, unspecified (principal); F17.200 Nicotine dependence, unspecified, uncomplicated; I10 Essential (primary) hypertension; J45.909 Unspecified asthma, uncomplicated; Z79.82 Long term (current) use of aspirin; Z20.822 Contact with and (suspected) exposure to COVID-19
CPT/HCPCS: 87081; 87430; 87635; 99283

== ENCOUNTER 2021-08-12 21:02 | Emergency (ER) | payer OTHER ==
--- NOTE | 2021-08-12 22:33 | XR ---
EXAMINATION TYPE: XR chest 1V portable DATE OF EXAM: 08/12/2021 COMPARISON: 11/21/2019 HISTORY: Chest pain TECHNIQUE: Single view FINDINGS: Heart and mediastinum are normal. Lungs are clear. Diaphragm is normal. Bony thorax appears normal. IMPRESSION: Normal chest. No change.
[2021-08-13 01:02] LABS: Basophils # (A) 0.1 k/uL (0-0.2); Basophils % (A) 1 %; Eosinophils # (A) 0.6 k/uL (0-0.7); Eosinophils % (A) 5 %; HCT 47.2 % (39.0-53.0); HGB 15.9 gm/dL (13.0-17.5); Lymphocytes # (A) 3.8 k/uL (1.0-4.8); Lymphocytes % (A) 32 %; MCH 30.4 pg (25.0-35.0); MCHC 33.6 g/dL (31.0-37.0); MCV 90.2 fL (80.0-100.0); Mean Platelet Volume 7.4; Monocytes # (A) 0.6 k/uL (0-1.0); Monocytes % (A) 5 %; Neutrophils # (A) 6.6 k/uL (1.3-7.7); Neutrophils % (A) 56 %; Platelet Count 338 k/uL (150-450); RBC 5.23 m/uL (4.30-5.90); RDW 13.1 % (11.5-15.5); WBC 11.9 k/uL (3.8-10.6)
[2021-08-13 01:12] LABS: INR 0.9 (<1.2); Prothrombin Time 9.9 sec (9.0-12.0)
[2021-08-13 01:13] LABS: ALT 21 U/L (4-49); AST 22 U/L (17-59); African American GFR (CKD) >90 (>60 ml/min/1.73 sqM); Albumin 3.9 g/dL (3.5-5.0); Alkaline Phosphatase 58 U/L (38-126); Anion Gap 6 mmol/L; Blood Urea Nitrogen 11 mg/dL (9-20); Calcium 9.1 mg/dL (8.4-10.2); Carbon Dioxide 23 mmol/L (22-30); Chloride 108 mmol/L (98-107); Glucose 100 mg/dL (74-99); Magnesium 2.2 mg/dL (1.6-2.3); Non-African American GFR(CKD) >90 (>60 ml/min/1.73 sqM); Partial Thromboplastin Time 23.2 sec (22.0-30.0); Potassium 4.1 mmol/L (3.5-5.1); Sodium 137 mmol/L (137-145); Total Bilirubin 0.2 mg/dL (0.2-1.3); Total Protein 6.5 g/dL (6.3-8.2)
--- NOTE | 2021-08-13 01:47 | ED ---
Chest Pain HPI - General Chief Complaint: Chest Pain Stated Complaint: Chest Pain Time Seen by Provider: 08/13/21 00:28 Source: patient Mode of arrival: ambulatory Limitations: no limitations - Related Data Home Medications Medication Instructions Recorded Confirmed Aspirin EC [Ecotrin Low Dose] 81 mg PO DAILY 11/22/19 11/22/19 Previous Rx's Medication Instructions Recorded ALPRAZolam [Xanax] 0.5 mg PO BID PRN #10 tablet 11/02/19 Hydrocortisone Cream 1 applic TOPICAL TID #20 gm 09/03/20 [Hydrocortisone 2.5% Cream] methylPREDNISolone Dose Pack 4 mg PO DIRECTED #21 package 09/03/20 [Medrol Dose Pack] Amoxicillin/Potassium Clav 1 tab PO Q12HR #20 tab 12/13/20 [Augmentin 875-125 Tablet] Allergies Allergy/AdvReac Type Severity Reaction Status Date / Time Iodinated Contrast Media Allergy Anaphylaxis Verified 08/12/21 21:38 [Iodinated Contrast- Oral and IV Dye] shellfish derived [Shellfish] Allergy Anaphylaxis Verified 08/12/21 21:38 Review of Systems ROS Statement: Those systems with pertinent positive or pertinent negative responses have been documented in the HPI. ROS Other: All systems not noted in ROS Statement are negative. Past Medical History Past Medical History: Asthma, Hypertension History of Any Multi-Drug Resistant Organisms: MRSA Date of last positivie culture/infection: 2010 MDRO Source:: leg Past Surgical History: Orthopedic Surgery Additional Past Surgical History / Comment(s): 2 knee surgeries 2001. Past Psychological History: No Psychological Hx Reported Smoking Status: Current every day smoker Past Alcohol Use History: None Reported Past Drug Use History: Marijuana General Exam Limitations: no limitations Course Vital Signs 08/12/21 08/13/21 21:35 00:58 Temperature 98.6 F Pulse Rate 58 L 51 L Respiratory 22 18 Rate Blood Pressure 128/70 153/97 O2 Sat by Pulse 98 96 Oximetry Disposition Clinical Impression: Chest pain Disposition: HOME SELF-CARE Condition: Good Instructions (If sedation given, give patient instructions): Chest Pain (ED) Is patient prescribed a controlled substance at d/c from ED?: No Referrals: Samantha España MD [Primary Care Provider] - 1-2 days
[2021-08-13 02:02] VITALS: BP 137/89; PULSE 50; RESP 20; TEMP 98.2
== END 2021-08-13 02:01 | disposition home or self-care (01) ==
LOC: EC 21:02
DX: R07.9 Chest pain, unspecified (principal); J45.909 Unspecified asthma, uncomplicated; I10 Essential (primary) hypertension; F17.200 Nicotine dependence, unspecified, uncomplicated; F12.90 Cannabis use, unspecified, uncomplicated; Z79.82 Long term (current) use of aspirin
CPT/HCPCS: 36415; 71045; 80053; 83735; 84484; 85025; 85610; 85730; 93005; 99285

== ENCOUNTER → 2021-09-15 | Outpatient (CLI) | payer OTHER ==
--- NOTE | 2021-09-15 11:04 | P.STRESS ---
- Stress Test Note Stress Test Results/Findings: Exam Performed: stress test Exam Date: 09/15/21 Reason for Exam: Chest Pain Height: 6 ft 1 in Weight: 104.326 kg Protocol: Quinton Stage: 4 Duration of Exercise: 12:00 Resting Heart Rate: 52 Resting Blood Pressure: 133/86 Maximum Achieved Heart Rate: 167 Maximum Achieved Blood Pressure: 213/86 85% PMHR: 156 100% PMHR: 183 METS: 12.1 Technologist Comment: Stress Test Results/Findings: Patient underwent exercise stress EKG with a Quinton protocol treadmill stress test. Patient exercised into Stage 4 for a total of 12 minutes reaching a total of 12.1 METS. Patient's maximum heart rate was 167 which represented 91% age- predicted maximum heart rate. Stress EKG findings: At baseline patient's EKG showed normal sinus rhythm, normal axis, no significant ST or T wave abnormalities. At peak exercise, EKG showed no significant change from baseline. Conclusions: 1. Normal EKG response to exercise without evidence of inducible ischemia. 2. Excellent exercise capacity.
== END | disposition home or self-care (01) ==
LOC: RADNMMAIN 08:25
PROVIDERS: ATTEND Family Medicine
DX: R07.9 Chest pain, unspecified (principal)
CPT/HCPCS: 93017

== ENCOUNTER 2021-10-31 23:05 | Observation (INO) | payer OTHER ==
--- NOTE | 2021-10-31 23:41 | XR ---
EXAMINATION TYPE: XR chest 2V DATE OF EXAM: 10/31/2021 COMPARISON: 08/12/2021 HISTORY: Chest pain TECHNIQUE: FINDINGS: Heart and mediastinum are normal. Lungs are clear. Diaphragm is normal. Bony thorax appears normal. IMPRESSION: Normal chest. No change.
[2021-11-01] MEDS ORDERED: MAG HYDROX/AL HYDROX/SIMETH 30 ML, HYOSCYAMINE ELIXIR 10 ML, LIDOCAINE VISCOUS 2% 10 ML PO STA ×3 (00:30)
--- NOTE | 2021-11-01 00:34 | ED ---
Chest Pain HPI - General Chief Complaint: Chest Pain Stated Complaint: Chest Pain Time Seen by Provider: 11/01/21 00:25 Source: patient, RN notes reviewed Limitations: no limitations - History of Present Illness Initial Comments: This is a pleasant 36-year-old male who presents to emergency department complaining of burning substernal chest pain which does not radiate. He denies any alleviating or exacerbating factors. States the pain started at rest this morning as progressed throughout the day. He has she states has been present the entire day. States it seemed to get worse. Patient took anxiety medicine but is not helped the pain appears describing as a burning sensation. Patient had a normal cardiac stress test in September. No headache, no fever or chills, no changes in vision or hearing, no sore throat or difficulty with speech, no neck pain, no chest pain or shortness of breath, no abdominal pain, no nausea or vomiting, no changes in urination or bowel movements, no numbness or tingling, no extremity pain, no skin rashes or lesions. MD Complaint: chest pain - Related Data Home Medications Medication Instructions Recorded Confirmed Aspirin EC [Ecotrin Low Dose] 81 mg PO DAILY 11/22/19 11/22/19 Previous Rx's Medication Instructions Recorded ALPRAZolam [Xanax] 0.5 mg PO BID PRN #10 tablet 11/02/19 Hydrocortisone Cream 1 applic TOPICAL TID #20 gm 09/03/20 [Hydrocortisone 2.5% Cream] methylPREDNISolone Dose Pack 4 mg PO DIRECTED #21 package 09/03/20 [Medrol Dose Pack] Amoxicillin/Potassium Clav 1 tab PO Q12HR #20 tab 12/13/20 [Augmentin 875-125 Tablet] Allergies Allergy/AdvReac Type Severity Reaction Status Date / Time Iodinated Contrast Media Allergy Anaphylaxis Verified 10/31/21 23:09 [Iodinated Contrast- Oral and IV Dye] shellfish derived [Shellfish] Allergy Anaphylaxis Verified 10/31/21 23:09 Review of Systems ROS Statement: Those systems with pertinent positive or pertinent negative responses have been documented in the HPI. ROS Other: All systems not noted in ROS Statement are negative. EKG Findings - EKG Comments: EKG Findings:: EKG review gravity ED attending physician reveals a rate of 53. Sinus bradycardia with a normal axis. Normal cures morphology. No acute ST or T or changes. When compared to the previous study from 09/15/2021 there is no significant change. Intervals are normal. Past Medical History Past Medical History: Asthma, Hypertension History of Any Multi-Drug Resistant Organisms: MRSA Date of last positivie culture/infection: 2010 MDRO Source:: leg Past Surgical History: Orthopedic Surgery Additional Past Surgical History / Comment(s): 2 knee surgeries 2001. Past Psychological History: No Psychological Hx Reported Smoking Status: Current every day smoker Past Alcohol Use History: None Reported Past Drug Use History: Marijuana General Exam - General Exam Comments Initial Comments: Healthy-appearing 36-year-old male in mild distress. Cranial nerves II through XII grossly intact Limitations: no limitations General appearance: alert, in distress Head exam: Present: atraumatic, normocephalic, normal inspection Eye exam: Present: normal appearance, PERRL, EOMI. Absent: scleral icterus, conjunctival injection, periorbital swelling ENT exam: Present: normal exam, normal oropharynx, mucous membranes moist Neck exam: Present: normal inspection. Absent: tenderness, meningismus, lymphadenopathy Respiratory exam: Present: normal lung sounds bilaterally. Absent: respiratory distress, wheezes, rales, rhonchi, stridor Cardiovascular Exam: Present: regular rate, normal rhythm, normal heart sounds. Absent: systolic murmur, diastolic murmur, rubs, gallop, clicks GI/Abdominal exam: Present: soft, normal bowel sounds. Absent: distended, tenderness, guarding, rebound, rigid Extremities exam: Present: normal inspection, full ROM, normal capillary refill. Absent: tenderness, pedal edema, joint swelling, calf tenderness Back exam: Present: normal inspection Neurological exam: Present: alert, oriented X3, CN II-XII intact Psychiatric exam: Present: normal affect, normal mood Skin exam: Present: warm, dry, intact, normal color. Absent: rash Course Vital Signs 10/31/21 11/01/21 23:06 01:34 Temperature 97.4 F L Pulse Rate 63 50 L Respiratory 16 18 Rate Blood Pressure 159/97 133/91 O2 Sat by Pulse 98 95 Oximetry - Reevaluation(s) Reevaluation #1: 11/01/21 02:34 Medical record is reviewed Symptoms are improved here in the emergency department Patient is informed of results and questions answered Patient in no distress Chest Pain MDM - Differential Diagnosis AMI, ACS, GERD, Esophageal Spasm, Biliary Colic, Pancreatitis Patient's presentation seems to be more consistent with gastrointestinal - MDM Case was discussed in detail with ED attending physician as well as the on-call admitting physician, Dr. Kilgore. Patient be placed in observation for acute pancreatitis. Computed tomography scan pending at this time. Patient was informed of all findings. Patient's diagnostic findings consistent with pancreatitis, possibly viral. However given the patient's symptomatology and the fact he has never had this intermittently the patient for observation, nothing by mouth diet, IV fluids, pain medication. Morning labs ordered. Computed tomography scan ordered as well. Disposition Clinical Impression: Acute pancreatitis Disposition: ADMITTED IP TO THIS HOSP Is patient prescribed a controlled substance at d/c from ED?: No Decision to Admit Reason: Admit from EC
[2021-11-01 01:21] LABS: Basophils # (A) 0.1 k/uL (0-0.2); Basophils % (A) 1 %; Eosinophils # (A) 0.5 k/uL (0-0.7); Eosinophils % (A) 5 %; HCT 43.4 % (39.0-53.0); HGB 14.7 gm/dL (13.0-17.5); Lymphocytes % (A) 30 %; MCHC 33.8 g/dL (31.0-37.0); MCV 91.8 fL (80.0-100.0); Mean Platelet Volume 7.8; Monocytes # (A) 0.6 k/uL (0-1.0); Monocytes % (A) 6 %; Neutrophils # (A) 5.7 k/uL (1.3-7.7); Neutrophils % (A) 57 %; Platelet Count 253 k/uL (150-450); RBC 4.73 m/uL (4.30-5.90); RDW 12.1 % (11.5-15.5)
[2021-11-01 01:32] LABS: INR 0.9 (<1.2)
[2021-11-01 01:43] LABS: ALT 36 U/L (4-49); AST 25 U/L (17-59); African American GFR (CKD) >90 (>60 ml/min/1.73 sqM); Albumin 4.1 g/dL (3.5-5.0); Alkaline Phosphatase 58 U/L (38-126); Anion Gap 2 mmol/L; Blood Urea Nitrogen 13 mg/dL (9-20); Calcium 9.2 mg/dL (8.4-10.2); Carbon Dioxide 27 mmol/L (22-30); Chloride 109 mmol/L (98-107); Glucose 100 mg/dL (74-99); Lipase 1212 U/L (23-300); Magnesium 2.2 mg/dL (1.6-2.3); Non-African American GFR(CKD) >90 (>60 ml/min/1.73 sqM); Sodium 138 mmol/L (137-145); Total Bilirubin 0.5 mg/dL (0.2-1.3); Total Protein 6.8 g/dL (6.3-8.2)
[2021-11-01] MEDS ORDERED: HYDROmorphone 1 MG/ML 1 ML SYRINGE IVP PRN (02:29)
[2021-11-01] MEDS ORDERED: NALOXONE 0.4 MG/ML 1 ML VIAL IV PRN (02:29)
[2021-11-01] MEDS ORDERED: HYDROmorphone 0.5 MG/0.5 ML SYRINGE IVP PRN (02:29)
[2021-11-01] MEDS ORDERED: ONDANSETRON 4 MG/2 ML VIAL IVP PRN (02:29)
--- NOTE | 2021-11-01 02:31 | CT ---
EXAMINATION TYPE: CT abdomen pelvis wo con DATE OF EXAM: 11/01/2021 COMPARISON: 03/20/2013 HISTORY: pancreatitis CT DLP: 938.3 mGycm Automated exposure control for dose reduction was used. Images obtained from the diaphragm to the floor the pelvis with no contrast Lung bases are clear. There is no pleural effusion. Heart size is normal. There is no pericardial eff usion. Liver spleen and stomach pancreas gallbladder appear intact. The bile ducts are not dilated. There is no adrenal mass. Kidneys show normal size and contour. There is no hydronephrosis. Bladder d istends smoothly. There is no inguinal hernia there is no free fluid in the pelvis. There is no evide nce of pelvic mass. Appendix is posterior and appears normal. There is no mesenteric edema. There is no ascites or free air. There is no bowel obstruction. There is no evidence of pancreatic mass. No retroperitoneal edema. The lumbar vertebrae have normal alignment. There is L5 spondylolysis with no significant spondylolis thesis. There is no compression fracture. Bony pelvis is intact. IMPRESSION: Negative exam. Normal appendix. No evidence of pancreatitis.
[2021-11-01] MEDS ORDERED: SODIUM CHLORIDE 0.9% 1,000 ML IV ONE (02:34)
[2021-11-01] MEDS: SODIUM CHLORIDE 0.9% 1,000 ML IV SCH ×3 (03:17→15:14)
[2021-11-01] MEDS: PANTOPRAZOLE 40 MG/10 ML VIAL IV SCH (08:59)
--- NOTE | 2021-11-01 19:47 | P.HPIM ---
History of Present Illness H&P Date: 11/01/21 Jordan Cohen, is a 36-year-old male who presented to [facility] emergency room with a chief complaint of chest pain and epigastric pain He was evaluated in the emergency room vital examination on presentation revealed a temperature of 97.4 pulse 63 respiration 16 blood pressure 159/97 pulse ox 98% on room air Laboratory data revealed a white blood count of 10.0 hemoglobin 14.7 platelet count 253 lipase was elevated at 1212 COVID-19 testing was negative Testing in the emergency room revealed computed tomography scan of the abdomen and pelvis was within normal limits chest x-ray was negative and EKG revealed sinus bradycardia with a heart rate of 53 otherwise normal EKG Patient was admitted to medical floor for further evaluation and treatment Past medical history is significant for previous episodes of chest pain patient stated that he had recent stress test which was negative, history of anxiety disorder and history of hypertension patient used to be on medications however he stopped taking them about 1 year ago, patient also stated that he had a history of excessive alcohol use up to 12-14 beers daily but he quit drinking 1- 1/2 years ago Past Medical History Past Medical History: Asthma History of Any Multi-Drug Resistant Organisms: MRSA Date of last positivie culture/infection: 2010 MDRO Source:: leg Past Surgical History: Orthopedic Surgery Additional Past Surgical History / Comment(s): 2 knee surgeries 2001. Past Anesthesia/Blood Transfusion Reactions: No Reported Reaction Past Psychological History: No Psychological Hx Reported Smoking Status: Current every day smoker Past Alcohol Use History: None Reported Past Drug Use History: Marijuana Medications and Allergies Home Medications Medication Instructions Recorded Confirmed Type No Known Home Medications 11/01/21 11/01/21 History Allergies Allergy/AdvReac Type Severity Reaction Status Date / Time Iodinated Contrast Media Allergy Anaphylaxis Verified 11/01/21 07:54 [Iodinated Contrast- Oral and IV Dye] shellfish derived [Shellfish] Allergy Anaphylaxis Verified 11/01/21 07:54 Physical Exam Vitals: Vital Signs Temp Pulse Pulse Resp BP BP Pulse Ox 11/01/21 05:31 97.8 F 62 16 147/103 94 L 11/01/21 03:21 50 L 18 11/01/21 01:34 50 L 18 133/91 95 10/31/21 23:06 97.4 F L 63 16 159/97 98 Intake and Output 10/31/21 11/01/21 11/01/21 22:59 06:59 14:59 Other: Voiding Method Toilet # Voids 1 Weight 104.326 kg In general patient is alert and oriented x 3 in no distress HEENT head normocephalic and atraumatic Neck is supple no JVD no goiter no lymphadenopathy no carotid bruit Chest examination is clear to auscultation no crackles no wheezing Cardiac exam reveals regular heart sounds S1 and S2 no gallops no murmurs Abdomen is soft nontender no organomegaly with normal bowel sounds Extremity exam reveals no edema no cyanosis or clubbing Neurological examination reveals no gross focal deficits Results CBC & Chem 7: 11/01/21 01:03 11/01/21 01:03 Labs: Abnormal Lab Results - Last 24 Hours (Table) 11/01/21 Range/Units 01:03 Chloride 109 H (98-107) mmol/L Glucose 100 H (74-99) mg/dL Lipase 1212 H (23-300) U/L Thrombosis Risk Factor Assmnt - Choose All That Apply Each Factor Represents 1 point: Obesity (BMI >25) Other Risk Factors: No Other congenital or acquired thrombophilia - If yes, enter type in comment: No Thrombosis Risk Factor Assessment Total Risk Factor Score: 1 Thrombosis Risk Factor Assessment Level: Low Risk Assessment and Plan Plan: Episode of chest pain Epigastric pain with elevated lipase, likely acute pancreatitis Hypertension, blood pressure is significantly elevated we will monitor and restart patient on blood pressure medications Anxiety disorder will give patient when necessary Xanax Bradycardia Will consult cardiology At this time continue with clear liquid diet Recheck labs including amylase and lipase in a.m. tomorrow Consult cardiology and gastroenterology Will follow in a.m.
[2021-11-02] MEDS: SODIUM CHLORIDE 0.9% 1,000 ML IV SCH ×4 (01:40→12:44)
--- NOTE | 2021-11-02 09:17 | P.CRDCN ---
History of Present Illness History of present illness: HISTORY OF PRESENTING ILLNESS This is a pleasant 36-year-old male past medical history significant for alcohol abuse quit June 2020, chronic nicotine dependence. No prior documented histo ry of cardiac disease. 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 We have been asked to see in consultation for chest pain and bradycardia. Patient presents emergency department with an episode of chest discomfort that began yesterday. Located in the center of his chest. Describes as a sharp pain. Lasted for about 1-2 hours. He states it lasted up until he was in the emergency department was given medication. Patient started on IV fluids and given IV Protonix. Patient denies any associated shortness of breath, lightheadedness, dizziness, diaphoresis, nausea, vomiting, syncope or near syncope. He denies any symptoms of orthopnea or PND. He denies any lower extremity edema. He denies any history of RI, coronary artery disease, stroke, diabetes, dyslipidemia. He states he was treated for hypertension when he was drinking alcohol but once he stopped drinking his BP improved and medications were removed. He continues to smoke about 1/2-1 PPD. Patient recently underwent a [place] exercise stress test on 09/15/2021 which was negative for inducible ischemia. DIAGNOSTICS EKG reveals sinus bradycardia, heart rate 53, T wave inversion in lead III, no acute ST ST wave abnormalities suggest ischemia. Chest xray no acute cardiopulmonary process CT abdomen and pelvis with no acute findings. Laboratory reviewed, CBC unremarkable, sodium 138, potassium 4.0, BUN 13, serum current 0.9, magnesium 2.2, troponin negative, lipase 1212, COVID-19 negative Current home medications include none REVIEW OF SYSTEMS At the time of my exam: CONSTITUTIONAL: Denies fever or chills. CARDIOVASCULAR: Denies chest pain, shortness of breath, orthopnea, PND or palpitations. RESPIRATORY: Denies cough. GASTROINTESTINAL: Denies abdominal pain, diarrhea, constipation, nausea or vomiting. MUSCULOSKELETAL: Denies myalgias. NEUROLOGIC: Denies numbness, tingling, headacbe or weakness. ENDOCRINE: Denies fatigue, weight change, polydipsia or polyurina. GENITOURINARY: Denies burning, hematuria or urgency with micturation. HEMATOLOGIC: Denies history of anemia or bleeding. PHYSICAL EXAMINATION Blood pressure 133/75, heart rate 53, afebrile, oxygen saturation is 97% on room air CONSTITUTIONAL: No apparent distress. HEENT: Head is normocephalic. Pupils are equal, round. Sclerae anicteric. Mucous membranes of the mouth are moist. No JVD. No carotid bruit. CHEST EXAMINATION: Lungs are clear to auscultation. No chest wall tenderness is noted on palpation or with deep breathing. HEART EXAMINATION: Regular rate and rhythm. S1, S2 heard. No murmurs, gallops or rub. ABDOMEN: Soft, nontender. Positive bowel sounds. EXTREMITIES: 2+ peripheral pulses, no lower extremity edema and no calf tenderness. NEUROLOGIC EXAMINATION: Patient is awake, alert and oriented x3. ASSESSMENT Chest pain, atypical, acute coronary syndrome has been ruled out. Recent stress test on 09/15/2021 was negative for inducible ischemia Sinus bradycardia, HR 50s History of alcohol abuse Chronic nicotine dependence Elevated lipase PLAN From a cardiology perspective, acute coronary syndrome has been ruled out. No evidence of ischemia on EKG, troponin negative. Recent stress test on 09/15/2021 was negative for inducible ischemia. Patient with heart rates in the 50s. No significant bradycardia noted. We'll follow the patient as needed. Please reach out with any further questions or concerns. Nurse practitioner note has been reviewed by physician. Signing provider agrees with the documented findings, assessment, and plan of care. Past Medical History Past Medical History: Asthma History of Any Multi-Drug Resistant Organisms: MRSA Date of last positivie culture/infection: 2010 MDRO Source:: leg Past Surgical History: Orthopedic Surgery Additional Past Surgical History / Comment(s): 2 knee surgeries 2001. Past Anesthesia/Blood Transfusion Reactions: No Reported Reaction Past Psychological History: No Psychological Hx Reported Smoking Status: Current every day smoker Past Alcohol Use History: None Reported Past Drug Use History: Marijuana Medications and Allergies Home Medications Medication Instructions Recorded Confirmed Type No Known Home Medications 11/01/21 11/01/21 History Allergies Allergy/AdvReac Type Severity Reaction Status Date / Time Iodinated Contrast Media Allergy Anaphylaxis Verified 11/01/21 07:54 [Iodinated Contrast- Oral and IV Dye] shellfish derived [Shellfish] Allergy Anaphylaxis Verified 11/01/21 07:54 Physical Exam Vitals: Vital Signs Temp Pulse Resp BP Pulse Ox 11/02/21 07:45 98.2 F 53 L 16 133/75 97 11/02/21 05:00 98 F 65 18 141/86 96 11/01/21 19:30 98.2 F 55 L 18 135/75 96 11/01/21 11:52 98.1 F 57 L 20 148/70 98 Intake and Output 11/01/21 11/02/21 11/02/21 22:59 06:59 14:59 Intake Total 1800 0 Balance 1800 0 Intake: Intake, IV Titration 1800 Amount Sodium Chloride 0.9% 1, 1800 000 ml @ 150 mls/hr IV . Q6H40M [facility] Rx#:[id number] Oral 0 Other: Voiding Method Toilet # Voids 1 Results 11/01/21 01:03 11/01/21 01:03 Current Medications Generic Name Dose Route Start Last Admin Trade Name Freq PRN Reason Stop Dose Admin Hydromorphone HCl 0.5 mg 11/01/21 02:29 Hydromorphone 0.5 Mg/0.5 Ml Syringe IVP Q3HR PRN Moderate Pain Hydromorphone HCl 1 mg 11/01/21 02:29 Hydromorphone 1 Mg/Ml 1 Ml Syringe IVP Q3HR PRN Severe Pain Sodium Chloride 1,000 mls @ 150 mls/hr 11/01/21 02:30 11/02/21 01:40 Saline 0.9% IV 150 mls/hr .Q6H40M [facility] Administration Naloxone HCl 0.2 mg 11/01/21 02:29 Naloxone 0.4 Mg/Ml 1 Ml Vial IV Q2M PRN Opioid Reversal Ondansetron HCl 4 mg 11/01/21 02:29 Ondansetron 4 Mg/2 Ml Vial IVP Q8HR PRN Nausea And Vomiting Pantoprazole Sodium 40 mg 11/01/21 09:00 11/01/21 08:59 Pantoprazole 40 Mg/10 Ml Vial IV 40 mg DAILY [facility] Administration Intake and Output 11/01/21 11/02/21 11/02/21 22:59 06:59 14:59 Intake Total 1800 0 Balance 1800 0 Intake: Intake, IV Titration 1800 Amount Sodium Chloride 0.9% 1, 1800 000 ml @ 150 mls/hr IV . Q6H40M [facility] Rx#:[id number] Oral 0 Other: Voiding Method Toilet # Voids 1 11/01/21 01:03 11/01/21 01:03
[2021-11-02 09:36] VITALS: RESP 14
[2021-11-02] MEDS: PANTOPRAZOLE 40 MG/10 ML VIAL IV SCH (09:41)
[2021-11-02 11:40] LABS: Basophils # (A) 0.07 X 10*3/uL (0.00-0.10); Basophils % (A) 0.9 %; Eosinophils # (A) 0.29 X 10*3/uL (0.04-0.35); Eosinophils % (A) 3.8 %; HCT 43.4 % (39.6-50.0); HGB 14.8 g/dL (13.0-17.0); Immature Grans, Automated 0.1 %; Lymphocytes # (A) 2.26 X 10*3/uL (0.90-5.00); Lymphocytes % (A) 29.8 %; MCH 30.4 pg (27.0-32.0); MCHC 34.1 g/dL (32.0-37.0); MCV 89.1 fL (80.0-97.0); Mean Platelet Volume 10.7 fL (9.5-12.2); Monocytes # (A) 0.56 X 10*3/uL (0.20-1.00); Monocytes % (A) 7.4 %; NRBC Per 100 WBC 0 /100 WBCS (0.0-0.0); Platelet Count 276 X 10*3/uL (140-440); RBC 4.87 X 10*6/uL (4.40-5.60); RDW 12.2 % (11.5-14.5); WBC 7.59 X 10*3/uL (4.50-10.00)
[2021-11-02 11:56] VITALS: BP 143/78; PULSE 52; TEMP 98
[2021-11-02 13:06] LABS: Albumin 4.1 g/dL (3.8-4.9); Albumin/Globulin Ratio 1.95 (1.60-3.17); Anion Gap 10.7 mmol/L (10.00-18.00); Blood Urea Nitrogen 8.1 mg/dL (9.0-27.0); Calcium 8.9 mg/dL (8.7-10.3); Carbon Dioxide 20.3 mmol/L (20.0-27.5); Globulin 2.1 g/dL (1.6-3.3); Non-African American GFR(CKD) 108.7 (60.0-200.0); Potassium 4.1 mmol/L (3.5-5.5); Total Bilirubin 0.6 mg/dL (0.30-1.20); Total Protein 6.2 g/dL (6.2-8.2)
--- NOTE | 2021-11-02 13:29 | P.CONS ---
History of Present Illness - Reason for Consult Consult date: 11/02/21 Pancreatitis Requesting physician: Anya Kilgore - Chief Complaint Chest pain - History of Present Illness This is a 36-year-old male who presented to the emergency department with complaints of chest pain yesterday. He states he had burning substernal chest pain he denies that it radiated to his back or abdomen. States that he has had this in the past and has undergone a stress test recently which she states was negative. He was noted to have an elevated lipase on admission of 1212. LFTs were all within normal range. He denies any previous known history of pancr eatitis. He does state that he has had similar symptoms in the past and thought it was just chest pain. He denies any previous history of gallbladder issues. He is a former alcoholic who quit in June 2020 and denies any current alcohol use. States he was a daily drinker heavily for many years. Today he states chest pain has improved. He states that it was not associated with any nausea, vomiting, or diarrhea. He's been afebrile. He denies any previous history of peptic ulcer disease or EGD. CT abdomen and pelvis without contrast was a negative exam. Normal appendix. No evidence of pancreatitis. Due to his recent chest pain and cardiac workup outpatient, he had cholesterol panel showing triglycerides of 109 back in August 2021 Review of Systems REVIEW OF SYSTEMS: CARDIOPULMONARY: Burning chest pain midsternal. Gastrointestinal: Denies abdominal pain. No nausea or vomiting. No hematemesis, coffee-ground emesis. No rectal bleeding, or melena. GENITOURINARY: No dysuria or hematuria. MUSCULOSKELETAL: Reports normal range of motion., Joint pain. SKIN: No rashes. No jaundice. ENDOCRINE: No chills, fevers. No excessive weight gain or loss. No polydipsia or polyuria. PSYCHIATRIC: Unremarkable. NEUROLOGY: No change in mental status. Denies dizziness, headache. ENT: Vision unremarkable. CONSTITUTIONAL: No recent weight loss. No fever, chills, night sweats. Past Medical History Past Medical History: Asthma History of Any Multi-Drug Resistant Organisms: MRSA Year Discovered:: 2010 MDRO Source:: leg Past Surgical History: Orthopedic Surgery Additional Past Surgical History / Comment(s): 2 knee surgeries 2001. Past Anesthesia/Blood Transfusion Reactions: No Reported Reaction Past Psychological History: No Psychological Hx Reported Smoking Status: Current every day smoker Past Alcohol Use History: None Reported Past Drug Use History: Marijuana Medications and Allergies Home Medications Medication Instructions Recorded Confirmed Type Pantoprazole Sodium [Protonix] 40 mg PO DAILY 30 Days #30 tab 11/02/21 Rx Allergies Allergy/AdvReac Type Severity Reaction Status Date / Time Iodinated Contrast Media Allergy Anaphylaxis Verified 11/01/21 07:54 [Iodinated Contrast- Oral and IV Dye] shellfish derived [Shellfish] Allergy Anaphylaxis Verified 11/01/21 07:54 Physical Exam Vitals: Vital Signs Temp Pulse Resp BP Pulse Ox 11/02/21 09:28 60 14 11/02/21 07:45 98.2 F 53 L 16 133/75 97 11/02/21 05:00 98 F 65 18 141/86 96 11/01/21 19:30 98.2 F 55 L 18 135/75 96 11/01/21 11:52 98.1 F 57 L 20 148/70 98 Intake and Output 11/01/21 11/02/21 11/02/21 22:59 06:59 14:59 Intake Total 1800 0 Balance 1800 0 Intake: Intake, IV Titration 1800 Amount Sodium Chloride 0.9% 1, 1800 000 ml @ 150 mls/hr IV . Q6H40M [facility] Rx#:[id number] Oral 0 Other: Voiding Method Toilet Toilet # Voids 1 1 # Bowel Movements 1 Results CBC & Chem 7: 11/02/21 07:05 11/02/21 07:05 CT scan - abdomen: report reviewed ( CT abdomen and pelvis without contrast was a negative exam. Normal appendix. No evidence of pancreatitis.) Assessment and Plan (1) Acute pancreatitis Narrative/Plan: 36-year-old male who presented to the emergency department with complaints of chest pain and burning in his chest. He states that he's had similar episodes about a month ago and has had a stress test which she states was negative. Blood work showed elevated lipase 1212. LFTs otherwise were normal. Patient does have a history of alcohol abuse however quit in 2019. He denies any previous episodes of pancreatitis. Denies any family history, new medications, or recent antibiotic use. Denies any problems with this gallbladder. CT of the abdomen showed a nonacute abdomen with no evidence of pancreatitis. Patient is now feeling better, denied any associated nausea, vomiting or diarrhea. Repeat lipase, CMP pending. Patient has been tolerating clear liquid . PEtiology unknown at this time. No evidence of gallstone pancreatitis, patient denies any recent alcohol use however a colic pancreatitis least be considered in light of history of heavy alcohol abuse for many years. Status: Acute Code(s): K85.90 - ACUTE PANCREATITIS WITHOUT NECROSIS OR INFECTION, UNSP SNOMED Code(s): 758120261 (2) Chest pain Status: Acute Code(s): R07.9 - CHEST PAIN, UNSPECIFIED SNOMED Code(s): 20318530 Plan: 1. Continue symptomatic and supportive care 2. May have clear liquid diet, advance to full liquid diet at lunch of tolerating clears 3. JEFF, IgG4 ordered 4. If patient is able to advance diet and no further complaints of pain he is cleared for discharge from gastroenterology pending clearance from cardiology Thank you for this consultation, we will continue to follow. Dr. Shey Mullins I agree with the dictator's note, documented as a scribe by Maria Dolores Carrillo.
--- NOTE | 2021-11-03 14:13 | P.DS ---
Providers Date of admission: 11/01/21 02:33 Expected date of discharge: 11/02/21 Attending physician: Anya Kilgore Consults: 11/01/21 13:31 Consult Physician Routine Consulting Provider: Maliha Mullins Consult Reason/Comments: acute pancreatitis Do you want consulting provider notified?: Yes 11/01/21 19:46 Consult Physician Routine Consulting Provider: aRdha Joaquin Consult Reason/Comments: Bradycardia Do you want consulting provider notified?: Yes Primary care physician: Samantha España Hospital Course: Discharge diagnosis Episode of chest pain Epigastric pain with elevated lipase, likely acute pancreatitis Hypertension, blood pressure is significantly elevated we will monitor and restart patient on blood pressure medications Anxiety disorder will give patient when necessary Xanax Bradycardia Will consult cardiology Hospital course Jordan Cohen, is a 36-year-old male who presented to [facility] emergency room with a chief complaint of chest pain and epigastric pain He was evaluated in the emergency room vital examination on presentation revealed a temperature of 97.4 pulse 63 respiration 16 blood pressure 159/97 pulse ox 98% on room air Laboratory data revealed a white blood count of 10.0 hemoglobin 14.7 platelet count 253 lipase was elevated at 1212 COVID-19 testing was negative Testing in the emergency room revealed computed tomography scan of the abdomen and pelvis was within normal limits chest x-ray was negative and EKG revealed sinus bradycardia with a heart rate of 53 otherwise normal EKG Patient was admitted to medical floor for further evaluation and treatment Past medical history is significant for previous episodes of chest pain patient stated that he had recent stress test which was negative, history of anxiety disorder and history of hypertension patient used to be on medications however he stopped taking them about 1 year ago, patient also stated that he had a history of excessive alcohol use up to 12-14 beers daily but he quit drinking 1- 1/2 years ago On 11/02/2021 patient has been cleared for discharge from GI services. Patient also was evaluated by cardiology services. Acute coronary syndrome has been ruled out. Recent stress test on 15 and she was negative for inducible ischemia tarring the 50s no significant bradycardia per cardiology no further workup at this time. Patient will be discharged on Protonix and follow-up outpatient for further management Patient Condition at Discharge: Stable Plan - Discharge Summary Discharge Rx Participant: Yes New Discharge Prescriptions: New Pantoprazole Sodium [Protonix] 40 mg PO DAILY 30 Days #30 tab Discharge Medication List Pantoprazole Sodium [Protonix] 40 mg PO DAILY 30 Days #30 tab 11/02/21 [Rx] Follow up Appointment(s)/Referral(s): Smaantha España MD [Primary Care Provider] - 1-2 days Maliha Mullins MD [STAFF PHYSICIAN] - As Needed Patient Instructions/Handouts: Pantoprazole (By mouth), Pancreatitis (DC), Gas troesophageal Reflux Disease (DC) Discharge Disposition: HOME SELF-CARE
== END 2021-11-02 14:37 | disposition home or self-care (01) ==
LOC: EC 23:05 → 6NMEDSUR 11-01 02:33 → 5NMEDONC 11-01 03:00
PROVIDERS: ADMIT Internal Medicine; ATTEND Internal Medicine
DX: R07.89 Other chest pain (principal); R07.2 Precordial pain; R10.13 Epigastric pain; R00.1 Bradycardia, unspecified; R74.8 Abnormal levels of other serum enzymes; I10 Essential (primary) hypertension; J45.909 Unspecified asthma, uncomplicated; F41.9 Anxiety disorder, unspecified; F10.10 Alcohol abuse, uncomplicated; F17.210 Nicotine dependence, cigarettes, uncomplicated; E66.9 Obesity, unspecified; Z68.31 Body mass index [BMI] 31.0-31.9, adult; Z20.822 Contact with and (suspected) exposure to COVID-19; Z86.14 Personal history of Methicillin resistant Staphylococcus aureus infection; Z71.9 Counseling, unspecified; Z79.899 Other long term (current) drug therapy; Z79.82 Long term (current) use of aspirin; Z91.041 Radiographic dye allergy status; Z91.013 Allergy to seafood
CPT/HCPCS: 96376; 96361 ×3; 96374; 99285; 36415; 93005; 80053 ×2; 83690 ×2; 83735; 84484; 85025 ×2; 85610; 85730; 82787; 86038; 87635; 71046; 74176; G0378 ×2; C9113 ×2

== ENCOUNTER 2022-07-28 02:12 | Emergency (ER) | payer BC, OTHER ==
[2022-07-28 02:56] VITALS: RESP 16; TEMP 98.1
[2022-07-28] MEDS ORDERED: SODIUM CHLORIDE 0.9% 1,000 ML IV STA (03:06)
[2022-07-28] MEDS ORDERED: ONDANSETRON 4 MG/2 ML VIAL IVP STA (03:06)
[2022-07-28] MEDS ORDERED: MORPHINE SULFATE 4 MG/ML SYRINGE IV STA (03:06)
[2022-07-28 03:43] LABS: Basophils # (A) 0.1 k/uL (0-0.2); Basophils % (A) 1 %; Eosinophils # (A) 0.3 k/uL (0-0.7); Eosinophils % (A) 5 %; HCT 47.6 % (39.0-53.0); HGB 15.8 gm/dL (13.0-17.5); Lymphocytes # (A) 1.6 k/uL (1.0-4.8); Lymphocytes % (A) 25 %; MCHC 33.2 g/dL (31.0-37.0); MCV 90.4 fL (80.0-100.0); Monocytes # (A) 0.3 k/uL (0-1.0); Monocytes % (A) 5 %; Neutrophils % (A) 62 %; Platelet Count 262 k/uL (150-450); RBC 5.26 m/uL (4.30-5.90); RDW 12.1 % (11.5-15.5); WBC 6.4 k/uL (3.8-10.6)
[2022-07-28 03:53] LABS: Prothrombin Time 10.9 sec (9.0-12.0)
[2022-07-28 04:01] LABS: ALT 22 U/L (4-49); AST 26 U/L (17-59); African American GFR (CKD) >90 (>60 ml/min/1.73 sqM); Alkaline Phosphatase 71 U/L (38-126); Amylase 76 U/L (30-110); Anion Gap 8 mmol/L; Blood Urea Nitrogen 9 mg/dL (9-20); Calcium 9.7 mg/dL (8.4-10.2); Carbon Dioxide 23 mmol/L (22-30); Chloride 110 mmol/L (98-107); Glucose 98 mg/dL (74-99); Lipase 397 U/L (23-300); Non-African American GFR(CKD) >90 (>60 ml/min/1.73 sqM); Potassium 4.3 mmol/L (3.5-5.1); Sodium 141 mmol/L (137-145); Total Bilirubin 0.7 mg/dL (0.2-1.3); Total Protein 7.7 g/dL (6.3-8.2)
--- NOTE | 2022-07-28 04:09 | CT ---
EXAMINATION TYPE: CT abdomen pelvis wo con DATE OF EXAM: 07/28/2022 COMPARISON: 11/01/2021 HISTORY: H/O PANCREATITIS. EPIGASTRIC PAIN CT DLP: 794.1 mGycm Automated exposure control for dose reduction was used. Images obtained from the diaphragm to the floor the pelvis with no contrast. The lung bases are clear. No pleural effusion. Heart size is normal. No pericardial effusion. Liver spleen stomach pancreas gallbladder appear intact. The bile duct are not dilated. There is no adrenal mass. Kidneys show normal size and contour. No hydronephrosis. Ureters are not di lated. Appendix is posterior and medial and appears normal. There is no mesenteric edema. No ascites or free air. No sign of a bowel obstruction. Bladder distends smoothly. No pelvic mass. No free fluid in the pelvis. No intestinal wall thickening. The lumbar vertebrae have fairly normal alignment. There is bilateral L5 spondylolysis with minimal L5-S1 spondylolisthesis. No compression fracture. Bony pelvis is intact . The hip joints are intact. IMPRESSION: Negative CT scan abdomen and pelvis. No adverse change compared to old exam. Normal appendix.
[2022-07-28 04:10] LABS: Appearance,Urine Clear (Clear); Bilirubin,Urine Negative (Negative); Blood,Urine Negative (Negative); Color,Urine Colorless; Glucose,Urine (UA) Negative (Negative); Ketones,Urine Negative (Negative); Leukocyte Esterase,Urine Negative (Negative); Nitrite,Urine Negative (Negative); PH, Urine 6.5 (5.0-8.0); Protein,Urine Negative (Negative); Specific Gravity,Urine 1.005 (1.001-1.035); Urobilinogen,Urine <2.0 mg/dL (<2.0)
[2022-07-28] MEDS ORDERED: ACET/COD 300 MG/30 MG STARTER PACK 6 TAB BTL PO STA (04:49)
--- NOTE | 2022-07-28 04:49 | ED ---
Abdominal Pain HPI - General Chief Complaint: Abdominal Pain Stated Complaint: Abdominal Pain Time Seen by Provider: 07/28/22 02:58 Source: patient Mode of arrival: ambulatory Limitations: no limitations - History of Present Illness Initial Comments: Patient is a 37-year-old male with history of pancreatitis presenting with chief complaint of epigastric pain. Patient that for the last 3 days he has had mild discomfort to the epigastric region. He does get waves of nausea, denies any vomiting. Patient has previous history of alcohol abuse, states he has been sober for several years. No chest pain, difficulty breathing, fever, chills, back pain, palpitations, weakness, diarrhea, hematochezia, melena. - Related Data Previous Rx's Medication Instructions Recorded Pantoprazole Sodium [Protonix] 40 mg PO DAILY 30 Days #30 tab 11/02/21 Ondansetron Odt [Zofran Odt] 4 mg PO Q8HR PRN #20 tab 07/28/22 Allergies Allergy/AdvReac Type Severity Reaction Status Date / Time Iodinated Contrast Media Allergy Anaphylaxis Verified 07/28/22 02:52 [Iodinated Contrast- Oral and IV Dye] shellfish derived [Shellfish] Allergy Anaphylaxis Verified 07/28/22 02:52 Review of Systems ROS Statement: Those systems with pertinent positive or pertinent negative responses have been documented in the HPI. ROS Other: All systems not noted in ROS Statement are negative. Past Medical History Past Medical History: Asthma Additional Past Medical History / Comment(s): pancreatitis History of Any Multi-Drug Resistant Organisms: MRSA Date of last positivie culture/infection: 2010 MDRO Source:: leg Past Surgical History: Orthopedic Surgery Additional Past Surgical History / Comment(s): 2 knee surgeries 2001. Past Anesthesia/Blood Transfusion Reactions: No Reported Reaction Past Psychological History: Anxiety Smoking Status: Current every day smoker Past Alcohol Use History: None Reported Past Drug Use History: Marijuana General Exam Limitations: no limitations General appearance: alert, in no apparent distress Head exam: Present: atraumatic, normocephalic, normal inspection Eye exam: Present: normal appearance Neck exam: Present: normal inspection Respiratory exam: Present: normal lung sounds bilaterally. Absent: respiratory distress, wheezes, rales, rhonchi, stridor Cardiovascular Exam: Present: regular rate, normal rhythm, normal heart sounds. Absent: systolic murmur, diastolic murmur, rubs, gallop, clicks GI/Abdominal exam: Present: soft, tenderness (Mild epigastric tenderness). Absent: distended, guarding, rebound, rigid Neurological exam: Present: alert, oriented X3, CN II-XII intact Psychiatric exam: Present: normal affect, normal mood Skin exam: Present: warm, dry, intact, normal color. Absent: rash Course Vital Signs 07/28/22 07/28/22 02:52 04:53 Temperature 98.1 F Pulse Rate 57 L 92 Respiratory 16 16 Rate Blood Pressure 155/104 139/82 O2 Sat by Pulse 99 98 Oximetry Medical Decision Making - Medical Decision Making Patient is a 37-year-old male with history of pancreatitis presenting with chief complaint of epigastric pain and nausea last 3 days. On physical examination there is mild tenderness to palpation of the epigastric region, otherwise physical exam unremarkable. CBC and coags are WNL. Troponin is less than 0.012. EKG showed no ischemic changes. Lipase is 397, amylase 76. UA is negative for any infectious process. CT of abdomen and pelvis shows no acute process. Patient is educated on these findings and on supportive treatment at home symptoms. He is provided with pain medication and Zofran. Follow-up with PCP. Report back to ER with any new or worsening symptoms. Discussed return parameters and answered all questions. Patient conveyed verbal understanding and agreed to the plan. I discussed this case in detail with my attending Dr. Olivares - Lab Data Result diagrams: 07/28/22 03:19 07/28/22 03:19 Lab Results 07/28/22 07/28/22 07/28/22 Range/Units 03:19 03:19 03:19 WBC 6.4 (3.8-10.6) k/uL RBC 5.26 (4.30-5.90) m/uL Hgb 15.8 (13.0-17.5) gm/dL Hct 47.6 (39.0-53.0) % MCV 90.4 (80.0-100.0) fL MCH 30.0 (25.0-35.0) pg MCHC 33.2 (31.0-37.0) g/dL RDW 12.1 (11.5-15.5) % Plt Count 262 (150-450) k/uL MPV 8.0 Neutrophils % 62 % Lymphocytes % 25 % Monocytes % 5 % Eosinophils % 5 % Basophils % 1 % Neutrophils # 4.0 (1.3-7.7) k/uL Lymphocytes # 1.6 (1.0-4.8) k/uL Monocytes # 0.3 (0-1.0) k/uL Eosinophils # 0.3 (0-0.7) k/uL Basophils # 0.1 (0-0.2) k/uL PT 10.9 (9.0-12.0) sec INR 1.0 (<1.2) APTT 25.0 (22.0-30.0) sec Sodium 141 (137-145) mmol/L Potassium 4.3 (3.5-5.1) mmol/L Chloride 110 H (98-107) mmol/L Carbon Dioxide 23 (22-30) mmol/L Anion Gap 8 mmol/L BUN 9 (9-20) mg/dL Creatinine 0.82 (0.66-1.25) mg/dL Est GFR (CKD-EPI)AfAm >90 (>60 ml/min/1.73 sqM) Est GFR (CKD-EPI)NonAf >90 (>60 ml/min/1.73 sqM) Glucose 98 (74-99) mg/dL Plasma Lactic Acid [place] (0.7-2.0) mmol/L Calcium 9.7 (8.4-10.2) mg/dL Total Bilirubin 0.7 (0.2-1.3) mg/dL AST 26 (17-59) U/L ALT 22 (4-49) U/L Alkaline Phosphatase 71 (38-126) U/L Troponin I (0.000-0.034) ng/mL Total Protein 7.7 (6.3-8.2) g/dL Albumin 5.0 (3.5-5.0) g/dL Amylase 76 (30-110) U/L Lipase 397 H (23-300) U/L Urine Color Urine Appearance (Clear) Urine pH (5.0-8.0) Ur Specific [place] (1.001-1.035) Urine Protein (Negative) Urine Glucose (UA) (Negative) Urine Ketones (Negative) Urine Blood (Negative) Urine Nitrite (Negative) Urine Bilirubin (Negative) Urine Urobilinogen (<2.0) mg/dL Ur Leukocyte Esterase (Negative) 07/28/22 07/28/22 07/28/22 Range/Units 03:19 03:19 03:40 WBC (3.8-10.6) k/uL RBC (4.30-5.90) m/uL Hgb (13.0-17.5) gm/dL Hct (39.0-53.0) % MCV (80.0-100.0) fL MCH (25.0-35.0) pg MCHC (31.0-37.0) g/dL RDW (11.5-15.5) % Plt Count (150-450) k/uL MPV Neutrophils % % Lymphocytes % % Monocytes % % Eosinophils % % Basophils % % Neutrophils # (1.3-7.7) k/uL Lymphocytes # (1.0-4.8) k/uL Monocytes # (0-1.0) k/uL Eosinophils # (0-0.7) k/uL Basophils # (0-0.2) k/uL PT (9.0-12.0) sec INR (<1.2) APTT (22.0-30.0) sec Sodium (137-145) mmol/L Potassium (3.5-5.1) mmol/L Chloride (98-107) mmol/L Carbon Dioxide (22-30) mmol/L Anion Gap mmol/L BUN (9-20) mg/dL Creatinine (0.66-1.25) mg/dL Est GFR (CKD-EPI)AfAm (>60 ml/min/1.73 sqM) Est GFR (CKD-EPI)NonAf (>60 ml/min/1.73 sqM) Glucose (74-99) mg/dL Plasma Lactic Acid [place] 0.9 (0.7-2.0) mmol/L Calcium (8.4-10.2) mg/dL Total Bilirubin (0.2-1.3) mg/dL AST (17-59) U/L ALT (4-49) U/L Alkaline Phosphatase (38-126) U/L Troponin I <0.012 (0.000-0.034) ng/mL Total Protein (6.3-8.2) g/dL Albumin (3.5-5.0) g/dL Amylase (30-110) U/L Lipase (23-300) U/L Urine Color Colorless Urine Appearance Clear (Clear) Urine pH 6.5 (5.0-8.0) Ur Specific [place] 1.005 (1.001-1.035) Urine Protein Negative (Negative) Urine Glucose (UA) Negative (Negative) Urine Ketones Negative (Negative) Urine Blood Negative (Negative) Urine Nitrite Negative (Negative) Urine Bilirubin Negative (Negative) Urine Urobilinogen <2.0 (<2.0) mg/dL Ur Leukocyte Esterase Negative (Negative) Disposition Clinical Impression: Abdominal pain Disposition: HOME SELF-CARE Condition: Good Instructions (If sedation given, give patient instructions): Pancreatitis (ED), Clear Liquid Diet (ED), Abdominal Pain (ED) Additional Instructions: Follow-up with PCP. Report back to ER with any new or worsening symptoms. Stay well-hydrated. Follow clear liquid diet for the next 2 days. Take medication as prescribed. Prescriptions: Ondansetron Odt [Zofran Odt] 4 mg PO Q8HR PRN #20 tab PRN Reason: Nausea Is patient prescribed a controlled substance at d/c from ED?: No Referrals: Samantha España MD [Primary Care Provider] - 1-2 days Time of Disposition: 04:49
[2022-07-28 04:54] VITALS: BP 139/82; PULSE 92
== END 2022-07-28 05:03 | disposition home or self-care (01) ==
LOC: EC 02:12
DX: R10.13 Epigastric pain (principal); F12.90 Cannabis use, unspecified, uncomplicated; F17.200 Nicotine dependence, unspecified, uncomplicated; J45.909 Unspecified asthma, uncomplicated; F41.9 Anxiety disorder, unspecified; Z91.041 Radiographic dye allergy status; Z91.013 Allergy to seafood
CPT/HCPCS: 36415; 93005; 80053; 82150; 83605; 83690; 84484; 85025; 85610; 85730; 81003; 74176; 99284; 96374; 96375; 96361; J2270; J2405

== ENCOUNTER → 2024-04-24 | Outpatient (CLI) | payer BC, OTHER | END | disposition home or self-care (01) | LOC: LABPRL 10:54 | PROVIDERS: ATTEND Nurse Practitioner Family | DX: Z00.00 Encounter for general adult medical examination without abnormal findings (principal); I10 Essential (primary) hypertension | CPT/HCPCS: 80053; 80061; 82306; 83036; 84443; 85027 ==

== ENCOUNTER 2024-06-18 09:26 | Day surgery (SDC) | payer BC, OTHER ==
[2024-06-18] MEDS: IV FLUID CONTINUATION 1,000 ML IV ONE (09:53)
[2024-06-18] MEDS: LACTATED RINGERS 1,000 ML IV SCH (09:57)
[2024-06-18 10:01] VITALS: RESP 16; TEMP 97.8
[2024-06-18] MEDS ORDERED: PROPOFOL 10 MG/ML 20 ML VIAL IV ONE (10:40)
--- NOTE | 2024-06-18 10:55 | P.PCN ---
Date of Procedure: 06/18/24 Procedure(s) Performed: BRIEF HISTORY: Patient is a 39-year-old pleasant white male scheduled for an elective colonoscopy as a part of screen for colon cancer in 5 years for colon cancer. His father was diagnosed with colon cancer at age 50. PROCEDURE PERFORMED: Colonoscopy. PREOPERATIVE DIAGNOSIS: Screening for colon cancer and family history of colon cancer. IV sedation per Anesthesia. PROCEDURE: After informed consent was obtained, the patient, was brought into the endoscopy unit. IV sedation was administered by Anesthesia under continuous monitoring. Digital rectal examination was normal. Initially the Olympus CF-160 flexible video colonoscope was then inserted in the rectum, gradually advanced into the cecum without any difficulty. Careful examination was performed as the scope was gradually being withdrawn. Ileocecal valve and the appendiceal orifice were visualized and appeared normal. Prep was excellent. Mucosa of the cecum, ascending colon, transverse colon, descending colon, sigmoid colon, and rectum appeared normal. Retroflexion was performed in the rectum and no lesions were seen. The patient tolerated the procedure well. IMPRESSION: Normal-appearing colon from rectum to cecum with no evidence of colorectal neoplasia. RECOMMENDATIONS: Findings of this examination were discussed with the patient as well as his family. He was advised to have repeat screening colonoscopy in 5 years because of the family history of colon cancer.
[2024-06-18 11:11] VITALS: BP 116/81; PULSE 55
== END 2024-06-18 11:25 | disposition home or self-care (01) ==
LOC: ORWHC2ENDO 09:26
PROVIDERS: ATTEND Internal Medicine Gastroenterology
DX: Z80.0 Family history of malignant neoplasm of digestive organs
CPT/HCPCS: 45378